=== PATIENT | female | born 2000 | race Two or more races ===

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

== ENCOUNTER 2021-01-02 14:25 | Emergency (ER) | payer MEDICAID, SELFPAY ==
[2021-01-02 14:32] VITALS: BP 120/86; BP 129/85; PULSE 103; PULSE 82; RESP 21; TEMP 36.5; O2SAT 93; O2SAT 98; BMI 15.4
--- NOTE | 2021-01-02 14:53 | ED.ABDPAIN ---
HPI - Abdominal Pain General Chief Complaint: Abdominal Pain Stated Complaint: RLQ abd pain Time Seen by Provider: 01/02/21 14:50 Source: patient Limitations: no limitations History of Present Illness HPI narrative: This is a 20 years old of female presented to the emergency department by ambulance with a chief complaint of right flank pain. He states he was seen in [facility] 2 days ago she was then used with a UTI MD elicited complaint: abdominal pain Pertinent past history: past UTI Onset (ago): day(s) (2) Pain Consistency: constant Severity: moderate Quality: cramping Migration to: no migration Associated symptoms: denies other symptoms Related Data Previous Rx's Medication Instructions Recorded vitamin B complex 1 tab PO DAILY 60 Days #60 tab 04/06/20 pantoprazole 40 mg tablet,delayed 40 mg PO BID 30 Days #60 tab 07/08/20 release ondansetron 4 mg disintegrating 4 mg PO TID PRN 5 Days #10 tab 11/13/20 tablet sulfamethoxazole 800 1 tab PO BID #6 tab 11/13/20 mg-trimethoprim 160 mg tablet (Bactrim DS) acetaminophen 500 mg capsule 500 mg PO Q6H PRN 60 Days #90 cap 11/16/20 lorazepam 1 mg tablet (Ativan) 1 mg PO DAILY PRN #14 tab 12/05/20 ondansetron 4 mg disintegrating 4 mg PO Q6-8H PRN #20 tab 12/05/20 tablet Allergies Allergy/AdvReac Type Severity Reaction Status Date / Time No Known Allergies Allergy Verified 11/15/20 18:24 [No Known Allergies*] Review of Systems Review of Systems Yes all other systems are reviewed and are negative Constitutional: Reports no additional constitutional complaints and Denies fever(s) Cardiovascular: Denies chest pain and Denies dyspnea Respiratory: Denies dyspnea Physical Exam Vital Signs: Vital Signs: Last Vital Signs Temp 97.6 F 01/02/21 16:00 Pulse 84 01/02/21 16:00 Resp 16 01/02/21 16:00 BP 137/78 01/02/21 16:00 Pulse Ox 98 01/02/21 16:00 Body Mass Index 15.4 Const: General: cooperative and anxious Orientation/consciousness: oriented to person, oriented to place, oriented to time and patient oriented x3 Limitations: no limitations HENMT: Other: Examination the head eyes ears nose throat within normal limit Mouth: Normal oral and palatal mucosa present Neck: Other: Neck is supple full range of motion Chest: Chest palpation & inspection: normal inspection of the chest Resp: Effort & Inspection: normal respiratory effort Auscultation: clear to auscultation bilaterally Cardio: Jugular venous distension: no JVD Rate: regular rate Rhythm: regular rhythm GI: Inspection: Yes normal to inspection Palpation (GI): Soft to palpation, not firm, nontender, no guarding and not rigid Skin: General skin exam: no rashes or lesions noted, elasticity normal and turgor normal Neuro: General: oriented to person, oriented to place, oriented to time and patient oriented x3 Course Course Course Narrative: UA pending case was signed out to Dr Nava MDM - Abdominal Pain Lab Data Result diagrams: 01/02/21 15:03 01/02/21 15:03 Labs: Lab Results 01/02/21 01/02/21 01/02/21 Range/Units 15:03 15:03 15:03 WBC 5.7 (4.8-10.8) X10*3/uL RBC 4.23 (4.20-5.50) X10*6/uL Hgb 13.1 (12.0-16.0) g/dl Hct 37.6 (37-47) % MCV 88.9 (80-98) fL MCH 31.0 (27.0-33.0) pg MCHC 34.8 (31.0-35.0) g/dl RDW 12.8 (11.0-16.0) % Plt Count 313 (160-400) X10*3/uL MPV 9.1 L (9.4-12.3) fL Immature Gran % (Auto) 0.2 (0.0-0.4) % Neut % (Auto) 56.2 (45-73) % Lymph % (Auto) 35.5 (20-40) % [place] % (Auto) 7.2 (2-11) % Eos % (Auto) 0.5 (0-4) % Baso % (Auto) 0.4 (0-2) % Lymph # (Auto) 2.0 (1.2-4.9) X10*3/uL [place] # (Auto) 0.4 (0.1-1.2) X10*3/uL Eos # (Auto) 0.0 (0.0-0.4) X10*3/uL Baso # (Auto) 0.0 (0.0-0.2) X10*3/uL Abs Immat Gran (auto) 0.01 (0.00-0.03) X10*3/uL Absolute Neuts (auto) 3.2 (2.0-8.3) X10*3/uL Absolute Nucleated RBC 0.000 (0.0-0.012) X10*3/uL Nucleated RBC % (auto) 0.0 (0.0-0.2) /100WBC Sodium 138 (135-145) mmol/L Potassium 3.7 (3.3-5.1) mmol/L Chloride 101 (96-108) mmol/L Carbon Dioxide 25 (22-29) mmol/L Anion Gap 16 (12-20) BUN 10 (9-16) mg/dL Creatinine 0.72 (0.5-1.4) mg/dL Estim Creat Clear Calc 80.9 Estimated GFR > 60 Random Glucose 85 (60-115) mg/dL Calcium 10.1 (8.4-10.2) mg/dL Total Bilirubin 3.5 H (0.0-1.0) mg/dL AST 15 (5-31) U/L ALT 14 (0-31) U/L Alkaline Phosphatase 36 L (39-117) U/L Total Protein 7.3 (6.5-8.0) g/dL Albumin 4.6 (3.5-5.0) g/dL Beta HCG, Quant < 2 mIU/mL Discharge Plan Discharge Clinical Impression: Acute flank pain Prescriptions: No Action ondansetron 4 mg tablet,disintegrating 4 mg PO Q6-8H PRN (Reason: nausea and vomiting) Qty: 20 RF: 0 lorazepam [Ativan] 1 mg tablet 1 mg PO DAILY PRN (Reason: anxiety) Qty: 14 RF: 0 sulfamethoxazole-trimethoprim [Bactrim DS] 800-160 mg tablet 1 tab PO BID Qty: 6 RF: 0 ondansetron 4 mg tablet,disintegrating 4 mg PO TID PRN (Reason: nausea and vomiting) 5 Days Qty: 10 RF: 0 acetaminophen 500 mg capsule 500 mg PO Q6H PRN (Reason: fever) 60 Days Qty: 90 RF: 3 vitamin B complex Tablet 1 tab PO DAILY 60 Days Qty: 60 RF: 3 pantoprazole 40 mg tablet,delayed release (DR/EC) 40 mg PO BID 30 Days Qty: 60 RF: 3 PMFSH Past Medical History Attestation statement: The following information was validated with the patient. Medical History Anxiety Gastritis Surgical History Hx of endoscopy Family History Family History Maternal Grandmother Asthma HTN (hypertension) Breast cancer Gallstones Maternal Grandmother Intestines cancer Social History Social History Household Members: Family Alcohol intake: unknown Patient Tobacco Use Status: Current someday Tobacco user Substance Use Type: Marijuana Advance Directives: No Advance Directives Information Provided: No Current occupational status: unemployed
[2021-01-02] MEDS: 0.9 % Sodium Chloride 1,000 ML 999 ML IVCONT (15:07)
[2021-01-02] MEDS: LORazepam 2 MG/ML VIAL 0.5 MG IVPUSH (15:08)
[2021-01-02] MEDS: Ketorolac Tromethamine 15 MG/ML VIAL IVPUSH (15:08)
[2021-01-02 15:12] LABS: Basophils Percent Auto 0.4 % (0-2); Eosinophils Percent Auto 0.5 % (0-4); Hematocrit 37.6 % (37-47); Hemoglobin 13.1 g/dl (12.0-16.0); Imm Gran Abs Auto 0.01 X10*3/uL (0.00-0.03); Imm Gran Pct Auto 0.2 % (0.0-0.4); Lymphocytes Percent Auto 35.5 % (20-40); MANUAL DIFF FLAG NO; Mean Corpuscular HGB Conc 34.8 g/dl (31.0-35.0); Mean Corpuscular Volume 88.9 fL (80-98); Mean Platelet Volume 9.1 fL (9.4-12.3); Monocytes Absolute Auto 0.4 X10*3/uL (0.1-1.2); Monocytes Percent Auto 7.2 % (2-11); Neutrophils Absolute Auto 3.2 X10*3/uL (2.0-8.3); Neutrophils Percent Auto 56.2 % (45-73); Platelet Count 313 X10*3/uL (160-400); Red Blood Count 4.23 X10*6/uL (4.20-5.50); Red Cell Distribution Width 12.8 % (11.0-16.0); White Blood Count 5.7 X10*3/uL (4.8-10.8)
--- NOTE | 2021-01-02 15:14 | PC.NURSE ---
Per patient: seen at [facility] had full ct scan, xr of abd, and us- then left because they didn't do shit for me . notified.
[2021-01-02 15:45] LABS: Alanine Aminotransferase 14 U/L (0-31); Albumin Level 4.6 g/dL (3.5-5.0); Alkaline Phosphatase 36 U/L (39-117); Anion Gap 16 (12-20); Aspartate Amino Transferase 15 U/L (5-31); Bilirubin Total 3.5 mg/dL (0.0-1.0); Blood Urea Nitrogen 10 mg/dL (9-16); Calcium 10.1 mg/dL (8.4-10.2); Carbon Dioxide 25 mmol/L (22-29); Chloride 101 mmol/L (96-108); Creatinine Clr Calc Pharmacy 80.9; Estimated Glomerular Filt Rate > 60; Glucose Random 85 mg/dL (60-115); Potassium 3.7 mmol/L (3.3-5.1); Sodium 138 mmol/L (135-145); Total Protein 7.3 g/dL (6.5-8.0)
[2021-01-02 15:51] LABS: HCG Quantitative < 2 mIU/mL
[2021-01-02 16:00] VITALS: BP 137/78; PULSE 84; RESP 16; TEMP 36.4; O2SAT 98
[2021-01-02 16:54] LABS: Glucose Urine UA NEG (NEG); Leukocyte Esterase Urine NEG (NEG); Nitrite Urine NEG (NEG); PH 5.5 (5.0-8.0); Specific Gravity - Urine >= 1.030 (1.005-1.025); UACC Culture Trigger NO; Urine Blood 1+ (NEG); Urine Ketones 15 MG/DL (NEG); Urine Protein 2+ MG/DL (NEG-TRACE)
[2021-01-02 16:56] LABS: Appearance Urine HAZY; Color Urine YELLOW
[2021-01-02 17:21] LABS: Mucus Urine 3+ /LPF; RBC Urine 0-2 /HPF (0); Squamous Epithelial Cell Urine 4+ /LPF
[2021-01-02 17:30] LABS: Fentanyl, urine POSITIVE (Not Detect)
[2021-01-02 18:00] VITALS: BP 100/55; PULSE 94; RESP 16; TEMP 36.3; O2SAT 98
[2021-01-02] MEDS: Dicyclomine HCl 10 MG CAPSULE 20 MG PO (19:07)
== END 2021-01-02 19:13 | disposition home or self-care (01) ==
PROVIDERS: Internal Medicine; Emergency Provider Emergency Medicine
DX: R10.31 Right lower quadrant pain (principal); Z79.899 Other long term (current) drug therapy; Z87.440 Personal history of urinary (tract) infections
CPT/HCPCS: 36415; 80053; 80307; 81001; 84702; 85025; 96365; 96375; 99284; J1885; J2060

== ENCOUNTER 2021-01-10 13:07 | Emergency (ER) | payer MEDICAID, SELFPAY ==
[2021-01-10 13:39] VITALS: PULSE 76; O2SAT 100
[2021-01-10 13:55] VITALS: BP 156/121; PULSE 113; RESP 20; TEMP 37; O2SAT 97; BMI 17.2
[2021-01-10] MEDS: Ondansetron ODT 4 MG TAB.RAPDIS TRANSLINGU (13:59)
== END 2021-01-10 16:04 | disposition left against medical advice (07) ==
LOC: HO.ED 16:00
PROVIDERS: Emergency Provider Emergency Medicine
DX: R10.9 Unspecified abdominal pain (principal)
CPT/HCPCS: 99282; 99283

== ENCOUNTER 2021-01-11 04:51 | Emergency (ER) | payer MEDICAID, SELFPAY ==
[2021-01-11 05:00] VITALS: BP 109/75; PULSE 88; RESP 16; TEMP 36.8; O2SAT 99; BMI 16.7
[2021-01-11 05:37] LABS: Basophils Percent Auto 0.2 % (0-2); Eosinophils Percent Auto 0.2 % (0-4); Hematocrit 36.2 % (37-47); Hemoglobin 12.6 g/dl (12.0-16.0); Imm Gran Abs Auto 0.02 X10*3/uL (0.00-0.03); Imm Gran Pct Auto 0.4 % (0.0-0.4); Lymphocytes Absolute Auto 1.8 X10*3/uL (1.2-4.9); Lymphocytes Percent Auto 32.5 % (20-40); Mean Corpuscular HGB Conc 34.8 g/dl (31.0-35.0); Mean Corpuscular Hemoglobin 31.3 pg (27.0-33.0); Mean Corpuscular Volume 89.8 fL (80-98); Monocytes Absolute Auto 0.5 X10*3/uL (0.1-1.2); Monocytes Percent Auto 8.5 % (2-11); Neutrophils Absolute Auto 3.3 X10*3/uL (2.0-8.3); Neutrophils Percent Auto 58.2 % (45-73); Platelet Count 341 X10*3/uL (160-400); Red Blood Count 4.03 X10*6/uL (4.20-5.50); Red Cell Distribution Width 13.4 % (11.0-16.0); White Blood Count 5.7 X10*3/uL (4.8-10.8)
[2021-01-11 05:38] LABS: MANUAL DIFF FLAG NO
[2021-01-11] MEDS: ondansetron HCL 4 MG/2 ML VIAL IVPUSH (05:40)
[2021-01-11] MEDS: 0.9 % Sodium Chloride 1,000 ML 999 ML IV (05:42)
[2021-01-11 05:58] LABS: Alanine Aminotransferase 10 U/L (0-31); Albumin Level 4.4 g/dL (3.5-5.0); Alkaline Phosphatase 33 U/L (39-117); Anion Gap 15 (12-20); Aspartate Amino Transferase 22 U/L (5-31); Bilirubin Total 1.9 mg/dL (0.0-1.0); Blood Urea Nitrogen 13 mg/dL (9-16); Calcium 10.4 mg/dL (8.4-10.2); Carbon Dioxide 27 mmol/L (22-29); Chloride 104 mmol/L (96-108); Creatinine Clr Calc Pharmacy 88.7; Estimated Glomerular Filt Rate > 60; Glucose Random 84 mg/dL (60-115); Lipase 6 U/L (8-78); Potassium 4.4 mmol/L (3.3-5.1); Sodium 142 mmol/L (135-145); Total Protein 7.1 g/dL (6.5-8.0)
--- NOTE | 2021-01-11 07:09 | ED.ABDPAIN ---
HPI - Abdominal Pain General Chief Complaint: Abdominal Pain Stated Complaint: ABD PAIN Time Seen by Provider: 01/11/21 07:09 Source: patient Mode of arrival: ambulatory Limitations: no limitations History of Present Illness HPI narrative: 20-year-old female with history of 2 years of abdominal pain. Abdominal pain accompanied with nausea and vomiting, pain feels like bloating of the abdomen on and off, patient had multiple evaluation by Gastroenterology, patient had an upper endoscopy which showed no acute pathology. Patient declined using alcohol, had a normal bowel movement with passing gas. Patient had a previous abdominal ultrasound/abdominal CT with the stoneworking sander workup which was unremarkable. Related Data Previous Rx's Medication Instructions Recorded vitamin B complex 1 tab PO DAILY 60 Days #60 tab 04/06/20 pantoprazole 40 mg tablet,delayed 40 mg PO BID 30 Days #60 tab 07/08/20 release ondansetron 4 mg disintegrating 4 mg PO TID PRN 5 Days #10 tab 11/13/20 tablet sulfamethoxazole 800 1 tab PO BID #6 tab 11/13/20 mg-trimethoprim 160 mg tablet (Bactrim DS) acetaminophen 500 mg capsule 500 mg PO Q6H PRN 60 Days #90 cap 11/16/20 lorazepam 1 mg tablet (Ativan) 1 mg PO DAILY PRN #14 tab 12/05/20 ondansetron 4 mg disintegrating 4 mg PO Q6-8H PRN #20 tab 12/05/20 tablet dicyclomine 20 mg tablet 20 mg PO TID PRN #20 tab 01/02/21 Allergies Allergy/AdvReac Type Severity Reaction Status Date / Time No Known Allergies Allergy Verified 11/15/20 18:24 [No Known Allergies*] Review of Systems Review of Systems All other systems are reviewed and are negative Constitutional: Reports as per HPI and Reports no additional constitutional complaints Eyes: Reports as per HPI and Reports no additional eye complaints Reports system reviewed and no additional complaints, except as documented Cardiovascular: Reports as per HPI and Reports no additional cardiovascular complaints Respiratory: Reports as per HPI and Reports no additional respiratory complaints Gastrointestinal: Reports as per HPI and Reports no additional gastrointestinal complaints Genitourinary: Reports no additional female genitourinary complaints Musculoskeletal: Reports no additional musculoskeletal complaints Skin/Breast: Reports system reviewed and no additional complaints, except as docu Psychiatric: Reports no additional psychiatric complaints Endocrine: Reports no additional endocrine complaints Hematologic/Lymphatic: Reports no additional hematologic/lymphatic complaints Allergic/Immunologic: Reports no additional allergic/immunologic complaints Reports system reviewed and no additional complaints, except as documented and Reports Abnormal speech present Physical Exam Vital Signs: Vital Signs: Last Vital Signs Temp 97.9 F 01/11/21 08:00 Pulse 89 01/11/21 08:00 Resp 18 01/11/21 08:00 BP 115/85 01/11/21 08:00 Pulse Ox 98 01/11/21 08:00 Body Mass Index 16.7 Vital signs have been reviewed as appeared to be correct. Blood pressure normal. Heart rate normal. Respiration rate normal. Temperature normal. Oxygen saturation normal. Appearance: Alert. Oriented X3. No acute distress. Head: Normal external exam. Normocephalic. Atraumatic. No Palmer signs noted. No raccoon eyes noted Eyes: PERRLA. EOMI. Conjunctiva and sclera normal. Eyelids normal. ENT: TM's Normal. Pharynx normal. Uvula midline. Moist mucous membranes. No trismus noted. No drooling noted. No muffled voice noted. Neck: Normal inspection. Neck supple. FROM. No adenopathy. Thyroid Normal. No meningeal signs. No neck mass noted. CVS: Normal heart rate and rhythm. Heart sound normal. No murmurs noted. Pulses normal throughout. Respiratory: No respiratory distress. Painless inspiration. Breath sounds normal. No wheezes/rales/rhonchi noted. Chest nontender. No accessory muscle usage noted or decreased air movement noted. Abdomen: Soft and nontender. Bowel sounds normal in all 4 quadrants. No distention noted. No organomegaly noted. No visible injury noted. Back: No CVA tenderness. Full range of motion noted. Skin: Skin warm and dry. Normal skin color. Normal skin turgor. No rashes/lesions/lacerations noted. Extremities: No lower extremity edema. Extremities exhibit normal range of motion. Extremities nontender. Neuro: Oriented X 3. Cranial nerve exam: II-XII are grossly intact No motor deficit. No sensory deficit. Reflexes normal. Course Course Course Narrative: Assessment and plan. 20-year-old female came in for evaluation of acute on chronic abdominal pain, patient has been seen and evaluated by stoneworking sander was upper and lower endoscopy workup, patient also had a recent visit to [facility] when she had a CT of the abdomen pelvis reportedly was unremarkable. Chronic abdominal pain to follow-up with stoneworking sander continue with antacids. MDM - Abdominal Pain Lab Data Attestation: I reviewed the patient's lab results. Result diagrams: 01/11/21 05:33 01/11/21 05:33 Labs: Lab Results 01/11/21 01/11/21 01/11/21 Range/Units 05:33 05:33 08:47 WBC 5.7 (4.8-10.8) X10*3/uL RBC 4.03 L (4.20-5.50) X10*6/uL Hgb 12.6 (12.0-16.0) g/dl Hct 36.2 L (37-47) % MCV 89.8 (80-98) fL MCH 31.3 (27.0-33.0) pg MCHC 34.8 (31.0-35.0) g/dl RDW 13.4 (11.0-16.0) % Plt Count 341 (160-400) X10*3/uL MPV 9.0 L (9.4-12.3) fL Immature Gran % (Auto) 0.4 (0.0-0.4) % Neut % (Auto) 58.2 (45-73) % Lymph % (Auto) 32.5 (20-40) % [place] % (Auto) 8.5 (2-11) % Eos % (Auto) 0.2 (0-4) % Baso % (Auto) 0.2 (0-2) % Lymph # (Auto) 1.8 (1.2-4.9) X10*3/uL [place] # (Auto) 0.5 (0.1-1.2) X10*3/uL Eos # (Auto) 0.0 (0.0-0.4) X10*3/uL Baso # (Auto) 0.0 (0.0-0.2) X10*3/uL Abs Immat Gran (auto) 0.02 (0.00-0.03) X10*3/uL Absolute Neuts (auto) 3.3 (2.0-8.3) X10*3/uL Absolute Nucleated RBC 0.000 (0.0-0.012) X10*3/uL Nucleated RBC % (auto) 0.0 (0.0-0.2) /100WBC Sodium 142 (135-145) mmol/L Potassium 4.4 (3.3-5.1) mmol/L Chloride 104 (96-108) mmol/L Carbon Dioxide 27 (22-29) mmol/L Anion Gap 15 (12-20) BUN 13 (9-16) mg/dL Creatinine 0.71 (0.5-1.4) mg/dL Estim Creat Clear Calc 88.7 Estimated GFR > 60 Random Glucose 84 (60-115) mg/dL Calcium 10.4 H (8.4-10.2) mg/dL Total Bilirubin 1.9 H (0.0-1.0) mg/dL AST 22 D (5-31) U/L ALT 10 (0-31) U/L Alkaline Phosphatase 33 L (39-117) U/L Total Protein 7.1 (6.5-8.0) g/dL Albumin 4.4 (3.5-5.0) g/dL Lipase 6 L (8-78) U/L Urine Color YELLOW Urine Appearance HAZY Urine pH 7.0 (5.0-8.0) Ur Specific [place] 1.020 (1.005-1.025) Urine Protein TRACE (NEG-TRACE) MG/DL Urine Glucose (UA) NEG (NEG) MG/DL Urine Ketones 40 (NEG) MG/DL Urine Blood TRACE (NEG) Urine Nitrite NEG (NEG) Ur Leukocyte Esterase NEG (NEG) Urine RBC 1-4 (0) /HPF Urine WBC 1-4 (0-4) /HPF Ur Squamous Epith Cells 2+ /LPF Amorphous Sediment 1+ /LPF Urine Bacteria NONE /LPF Urine Mucus 3+ /LPF Urine Test (NEGATIVE) 01/11/21 Range/Units 08:47 WBC (4.8-10.8) X10*3/uL RBC (4.20-5.50) X10*6/uL Hgb (12.0-16.0) g/dl Hct (37-47) % MCV (80-98) fL MCH (27.0-33.0) pg MCHC (31.0-35.0) g/dl RDW (11.0-16.0) % Plt Count (160-400) X10*3/uL MPV (9.4-12.3) fL Immature Gran % (Auto) (0.0-0.4) % Neut % (Auto) (45-73) % Lymph % (Auto) (20-40) % [place] % (Auto) (2-11) % Eos % (Auto) (0-4) % Baso % (Auto) (0-2) % Lymph # (Auto) (1.2-4.9) X10*3/uL [place] # (Auto) (0.1-1.2) X10*3/uL Eos # (Auto) (0.0-0.4) X10*3/uL Baso # (Auto) (0.0-0.2) X10*3/uL Abs Immat Gran (auto) (0.00-0.03) X10*3/uL Absolute Neuts (auto) (2.0-8.3) X10*3/uL Absolute Nucleated RBC (0.0-0.012) X10*3/uL Nucleated RBC % (auto) (0.0-0.2) /100WBC Sodium (135-145) mmol/L Potassium (3.3-5.1) mmol/L Chloride (96-108) mmol/L Carbon Dioxide (22-29) mmol/L Anion Gap (12-20) BUN (9-16) mg/dL Creatinine (0.5-1.4) mg/dL Estim Creat Clear Calc Estimated GFR Random Glucose (60-115) mg/dL Calcium (8.4-10.2) mg/dL Total Bilirubin (0.0-1.0) mg/dL AST (5-31) U/L ALT (0-31) U/L Alkaline Phosphatase (39-117) U/L Total Protein (6.5-8.0) g/dL Albumin (3.5-5.0) g/dL Lipase (8-78) U/L Urine Color Urine Appearance Urine pH (5.0-8.0) Ur Specific [place] (1.005-1.025) Urine Protein (NEG-TRACE) MG/DL Urine Glucose (UA) (NEG) MG/DL Urine Ketones (NEG) MG/DL Urine Blood (NEG) Urine Nitrite (NEG) Ur Leukocyte Esterase (NEG) Urine RBC (0) /HPF Urine WBC (0-4) /HPF Ur Squamous Epith Cells /LPF Amorphous Sediment /LPF Urine Bacteria /LPF Urine Mucus /LPF Urine Test NEGATIVE (NEGATIVE) Discharge Plan Discharge Clinical Impression: Abdominal pain Patient Disposition: Home, Self-Care Instructions: Gastritis (ED) Prescriptions: No Action ondansetron 4 mg tablet,disintegrating 4 mg PO Q6-8H PRN (Reason: nausea and vomiting) Qty: 20 RF: 0 lorazepam [Ativan] 1 mg tablet 1 mg PO DAILY PRN (Reason: anxiety) Qty: 14 RF: 0 sulfamethoxazole-trimethoprim [Bactrim DS] 800-160 mg tablet 1 tab PO BID Qty: 6 RF: 0 ondansetron 4 mg tablet,disintegrating 4 mg PO TID PRN (Reason: nausea and vomiting) 5 Days Qty: 10 RF: 0 dicyclomine 20 mg tablet 20 mg PO TID PRN (Reason: pain (scale score 4-6)) Qty: 20 RF: 0 acetaminophen 500 mg capsule 500 mg PO Q6H PRN (Reason: fever) 60 Days Qty: 90 RF: 3 vitamin B complex Tablet 1 tab PO DAILY 60 Days Qty: 60 RF: 3 pantoprazole 40 mg tablet,delayed release (DR/EC) 40 mg PO BID 30 Days Qty: 60 RF: 3 Referrals: Michael Proctor [Physician] - 2 days PMFSH Past Medical History Medical History Anxiety Gastritis Surgical History Hx of endoscopy Family History Family History Maternal Grandmother Asthma HTN (hypertension) Breast cancer Gallstones Maternal Grandmother Intestines cancer Social History Social History Household Members: Family Alcohol intake: unknown Patient Tobacco Use Status: Current someday Tobacco user Substance Use Type: Marijuana Advance Directives: No Advance Directives Information Provided: No Patient : No Current occupational status: unemployed
[2021-01-11 08:00] VITALS: BP 115/85; PULSE 89; RESP 18; TEMP 36.6; O2SAT 98
[2021-01-11] MEDS: Ketorolac Tromethamine 15 MG/ML VIAL IVPUSH (08:43)
--- NOTE | 2021-01-11 08:50 | PC.NURSE ---
no vomiting. upper abd pain. skin pwd. states she had CT/US last week at [facility].
[2021-01-11 09:01] LABS: Appearance Urine HAZY; Color Urine YELLOW; Glucose Urine UA NEG (NEG); Leukocyte Esterase Urine NEG (NEG); Nitrite Urine NEG (NEG); UACC Culture Trigger NO; Urine Blood TRACE (NEG); Urine Ketones 40 MG/DL (NEG); Urine Protein TRACE MG/DL (NEG-TRACE)
[2021-01-11 09:06] LABS: Amorphous Sediment Urine 1+ /LPF; Mucus Urine 3+ /LPF; Squamous Epithelial Cell Urine 2+ /LPF; UPreg QC Valid YES
[2021-01-11 09:07] LABS: Urine Pregnancy NEGATIVE (NEGATIVE)
== END 2021-01-11 10:17 | disposition home or self-care (01) ==
PROVIDERS: Emergency Provider Emergency Medicine
DX: R10.9 Unspecified abdominal pain (principal); F17.210 Nicotine dependence, cigarettes, uncomplicated; F12.90 Cannabis use, unspecified, uncomplicated
CPT/HCPCS: 36415; 80053; 81001; 81003; 81025; 83690; 85025; 96361; 96374; 96375; 99284; J1885; J2405

== ENCOUNTER 2021-01-17 22:55 | Emergency (ER) | payer MEDICAID, SELFPAY ==
[2021-01-17 23:03] VITALS: BP 138/110; PULSE 120; O2SAT 99
== END 2021-01-17 23:13 | disposition left against medical advice (07) ==
PROVIDERS: Emergency Provider Emergency Medicine
DX: R10.9 Unspecified abdominal pain (principal)

== ENCOUNTER 2021-01-18 09:37 | Day surgery (SDC) | payer MEDICAID, SELFPAY ==
--- NOTE | 2021-01-17 10:31 | HO.ANESPROP2 ---
Documented by User: Salma Pitts NP 01/17/21 10:32 HPI - Anesthesia Eval Consult details Narrative: 20yo F for Upper Endoscopy PMFSH Active Problems Active Problems: All Active Problems (Updated 01/12/21 @ 00:02 by Santos Maldonado) ADHD (Acute) Gastroparesis (Acute) Nausea and vomiting (Acute) Upper abdominal pain (Acute) Anxiety (Acute) Past Medical History Medical History ADHD Anxiety Gastritis Gastroparesis Family History Family History Maternal Grandmother Asthma HTN (hypertension) Breast cancer Gallstones Maternal Grandmother Intestines cancer Surgical History Surgical History Hx of endoscopy Social History Social History Household Members: Family Alcohol intake: unknown Patient Tobacco Use Status: Current someday Tobacco user Tobacco use type: Cigarette Second Hand Smoke Exposure: No Use of substances other than those prescribed or required for medical reasons: No Substance Use Type: Marijuana Are you DNR?: No Advance Directives: No Advance Directives Information Provided: Yes Advance Directives on File: No Current occupational status: unemployed Meds Allergies Allergy/AdvReac Type Severity Reaction Status Date / Time No Known Allergies Allergy Verified 11/15/20 18:24 [No Known Allergies*] Exam Exam Date and Time: January 17, 2021 1031 Pertinent Lab Results Pertinent Lab Results: Laboratory Tests 01/11/21 01/11/21 05:33 05:33 WBC 5.7 Hgb 12.6 Hct 36.2 L Plt Count 341 Sodium 142 Potassium 4.4 Chloride 104 Carbon Dioxide 27 BUN 13 Creatinine 0.71 Assessment and Plan Assessment Anesthesia Assessment: Chart Reviewed Documented by User: Gabby Callahan MD 01/18/21 10:02 PMFSH Past Medical History Medical History ADHD Anxiety Gastritis Gastroparesis Functional capacity: independent ambulation Patient : No Family History Family History Maternal Grandmother Asthma HTN (hypertension) Breast cancer Gallstones Maternal Grandmother Intestines cancer Family history of problems with anesthesia: No Surgical History Surgical History Hx of endoscopy History of Problems with Anesthesia: No Social History Social History Household Members: Family Alcohol intake: unknown Patient Tobacco Use Status: Current someday Tobacco user Tobacco use type: Cigarette Second Hand Smoke Exposure: No Use of substances other than those prescribed or required for medical reasons: No Substance Use Type: Marijuana Are you DNR?: No Advance Directives: No Advance Directives Information Provided: Yes Advance Directives on File: No Current occupational status: unemployed Meds Allergies Allergy/AdvReac Type Severity Reaction Status Date / Time No Known Allergies Allergy Verified 11/15/20 18:24 [No Known Allergies*] Exam Airway Mallampati Class: II TM Dist: >3cm Neck ROM: Full Heart: RRR Lungs: CCTA Assessment and Plan Final Anesthetic Review Family History of Problems with Anesthesia: No History of Problems with Anesthesia: No
[2021-01-18 09:52] VITALS: BP 124/105; PULSE 95; RESP 16; TEMP 36.5; O2SAT 94; BMI 15.4
[2021-01-18] MEDS: Lactated Ringers 1,000 ML 100 ML IVCONT (10:05)
--- NOTE | 2021-01-18 10:10 | PC.NURSE ---
urine preg ordered on patient. pt states unable to urinate at this time. pt complaining of 10/10 pain to the abdomen. Dr. Panda at bedside. pt states i am not . per Dr. Panda can continue with procedure without urine preg test.
--- NOTE | 2021-01-18 10:47 | MHC.SHP ---
Pre-Procedural Eval Section A Date of Service: 01/18/21 The patient is an INPATIENT: No Changes since office visit: No Cold of Flu in the past 2 weeks, No New Medical Problems, No Changes in Medication and No Patient answered all questions The History & Physical has been completed within 30 days and I have reviewed it.: Yes Section B Chief Complaint: epi pain Allergies: Allergies Allergy/AdvReac Type Severity Reaction Status Date / Time No Known Allergies Allergy Verified 11/15/20 18:24 [No Known Allergies*] Plan I have reviewed the history and physical and performed a pertinent physical examination on my patient. No changes have occurred unless specified.
--- NOTE | 2021-01-18 11:07 | PM.OP ---
Brief Operative Note Date of Service: 01/18/21 Pre-op diagnosis: epigastric pain Post-op diagnosis: same (erosove gastritis, and esophagitis) Procedure: EGD Surgeon: Michael Proctor Anesthesia: MAC Was an Seamless Hosiery Knitter used for this Procedure?: No Estimated blood loss (mL): 5 Pathology: other (bxs antrum, duodenum, egj) Condition: stable Disposition: PACU
[2021-01-18 11:10] VITALS: BP 121/82; PULSE 95; RESP 20; TEMP 36.6; O2SAT 99
[2021-01-18 11:27] VITALS: BP 136/91; PULSE 102; RESP 20; TEMP 36.6; O2SAT 99
--- NOTE | 2021-01-18 11:28 | OP_ITS ---
SURGEON: Michael Proctor MD INDICATIONS: Epigastric pain. PREOPERATIVE DIAGNOSIS: POSTOPERATIVE DIAGNOSIS: PROCEDURE PERFORMED: Upper endoscopy with biopsy. ESTIMATED BLOOD LOSS: COMPLICATIONS: ANESTHESIA: ASSISTANTS: SPECIMENS: MEDICATIONS: Monitored anesthesia care. DESCRIPTION OF PROCEDURE: The history and physical performed. The risks and benefits of procedure were explained to the patient. Informed consent was obtained. The patient was placed in the left lateral decubitus position. The Olympus video gastroscope was introduced into the esophagus, stomach, and duodenum. Examination was performed and the scope was removed. She tolerated the procedure well and was taken to recovery area in stable condition. FINDINGS: Esophagus: There was a distal esophagitis with erosions and ulcerations over the last 1 cm of the esophagus. Biopsies were obtained from the EG junction. Stomach: The stomach showed multiple erosions involving the body and fundus of the stomach as well as the antrum. Biopsies were obtained to rule out H pylori. There was no active bleeding. Duodenum: The bulb and second portion were normal. Biopsies were obtained from the second portion. IMPRESSION: 1. Erosive gastritis. 2. Erosive esophagitis. RECOMMENDATIONS: 1. Continue pantoprazole 40 mg daily. 2. Follow up the biopsy results. MD BLAKE Hagen/ASHLEY / [id number]
--- NOTE | 2021-01-18 17:11 | HO.POSTANES ---
Post Anesthesia Evaluation Post Anesthesia Evaluation Vital Signs: Vital Signs Temp Pulse Resp BP Pulse Ox 01/18/21 11:27 97.8 F 102 H 20 136/91 H 99 01/18/21 11:10 97.8 F 95 20 121/82 99 01/18/21 09:52 97.7 F 95 16 124/105 H 94 Anesthesia: Monitored Mental Status: Awake Pain Control: Satisfactory Nausea/Vomiting: None Hydration: Adequate Anesthesia-Related Issues: No Anes. Related Issues
== END 2021-01-18 11:59 | disposition home or self-care (01) ==
PROVIDERS: PCP Nurse Practitioner; Visit Provider Internal Medicine Gastroenterology
PROC: 0DJ08ZZ Inspection of Upper Intestinal Tract, Via Natural or Artificial Opening Endoscopic (ICD-10-PCS; CPT 43235; principal; 2021-01-18 10:50)
DX: K20.80 Other esophagitis without bleeding (principal); K29.60 Other gastritis without bleeding; K31.84 Gastroparesis; F90.9 Attention-deficit hyperactivity disorder, unspecified type; F32.9 Major depressive disorder, single episode, unspecified
CPT/HCPCS: 43239; 88305; 88342

== ENCOUNTER 2021-06-13 18:40 | Emergency (ER) | payer MEDICAID, SELFPAY ==
[2021-06-13 18:53] VITALS: BP 112/69; BP 128/73; PULSE 121; PULSE 125; RESP 20; TEMP 36.9; O2SAT 97; BMI 18.8
--- NOTE | 2021-06-13 18:56 | ED.ABDPAIN ---
HPI - Abdominal Pain General Chief Complaint: Abdominal Pain Stated Complaint: ABD PAIN,ANXIETY Source: patient and EMS Mode of arrival: EMS Limitations: no limitations History of Present Illness HPI narrative: 21-year-old female presents via EMS with abdominal pain, nausea, vomiting, and anxiety. Is approximately 7 weeks . MD elicited complaint: abdominal pain Onset (ago): year(s) Pain Consistency: intermittent Location: epigastric Severity: similar to previous episodes Quality: aching Radiation: none Migration to: no migration Exacerbating factors: vomiting Relieving factors: nothing Context: history of similar episodes Associated symptoms: nausea, vomiting and other (Anxiety) Related Data Date of Last Menstrual Period: 04/26/21 Patient : Yes Previous Rx's Medication Instructions Recorded vitamin B complex 1 tab PO DAILY 60 Days #60 tab 04/06/20 pantoprazole 40 mg tablet,delayed 40 mg PO BID 30 Days #60 tab 07/08/20 release ondansetron 4 mg disintegrating 4 mg PO TID PRN 5 Days #10 tab 11/13/20 tablet sulfamethoxazole 800 1 tab PO BID #6 tab 11/13/20 mg-trimethoprim 160 mg tablet (Bactrim DS) acetaminophen 500 mg capsule 500 mg PO Q6H PRN 60 Days #90 cap 11/16/20 lorazepam 1 mg tablet (Ativan) 1 mg PO DAILY PRN #14 tab 12/05/20 ondansetron 4 mg disintegrating 4 mg PO Q6-8H PRN #20 tab 12/05/20 tablet dicyclomine 20 mg tablet 20 mg PO TID PRN #20 tab 01/02/21 Allergies Allergy/AdvReac Type Severity Reaction Status Date / Time No Known Allergies Allergy Verified 11/15/20 18:24 [No Known Allergies*] Review of Systems Review of Systems Constitutional: No Weight loss, No Fever, No Chills, No Night Sweats, No Fatigue, No Malaise ENT/Mouth: No Hearing loss, No Ear Pain, No Nasal Congestion, No Sinus Pain, No Hoarseness, No sore throat, No Rhinorrhea, No Swallowing Difficulty Eyes: No Eye Pain, No Swelling, No Redness, No Foreign Body, No Discharge, No Vision Changes Cardiovascular: No Chest Pain, No SOB, No Dyspnea on Exertion, No Orthopnea, No Edema, No Palpitations Respiratory: No Cough, No Sputum, No Wheezing, No Smoke Exposure, No Dyspnea Gastrointestinal: Positive Nausea, Positive Vomiting, no Diarrhea, positive abdominal Pain, No Hematochezia, No Melena Genitourinary: no irregular bleeding, No Dysuria, No Urinary Frequency, No Hematuria, No Urinary Incontinence, No Urgency, No Flank Pain, No Urinary Flow Changes, No Hesitancy Musculoskeletal: No joint pain, No Myalgias, No Joint Swelling Skin: No Skin Lesions, No rash Neuro: No Weakness, No Numbness, No Paresthesias, No Loss of Consciousness, No Dizziness, No Headache Psych: Positive Anxiety, no Panic, No Depression, No SI/HI/AH/VH, No Social Issues Heme/Lymph: No Bruising, No Bleeding,No Lymphadenopathy Endocrine: No Polyuria, No Polydipsia, No Temperature Intolerance Yes all other systems are reviewed and are negative Physical Exam Vital Signs: Vital Signs: Last Vital Signs Temp 98.5 F 06/13/21 18:53 Pulse 125 H 06/13/21 18:53 Resp 20 06/13/21 18:53 BP 128/73 06/13/21 18:53 Pulse Ox 97 06/13/21 18:53 BMI result Body Mass Index 18.8 Appearance: Alert. Oriented X3. Anxiety and emotional distress. Eyes: Pupils equal, round and reactive to light. Sclera nonicteric. EOMI. ENT: Pharynx normal. Moist mucous membranes. Neck: Normal inspection. Neck supple. CVS: Normal heart rate and rhythm. Pulses normal. Respiratory: No respiratory distress. Breath sounds normal. Abdomen: Soft and nontender to palpation. Skin: Skin warm and dry. Normal skin color. Normal skin turgor. Extremities: No lower extremity edema. Moves all extremities against resistance. Neuro: No motor deficit. No sensory deficit. Cranial nerves 2-12 intact. NIH Stroke Scale Motor Arm (Right): Some effort against gravity Course Course Course Narrative: 21-year-old female presents via EMS for abdominal pain, nausea and vomiting. States to have recurrent episodes like this and is approximately 7 weeks . Patient is not complaining of any lower abdominal pain, denies vaginal bleeding or cramping, trauma, abuse, abnormal vaginal discharge, or any other concerning symptoms. States that she stop smoking marijuana approximately a week ago. Patient has had numerous visits for similar circumstances in the past with negative workup, has chronically elevated liver enzymes. Will order labs, hCG quant, and resuscitate with 1 L of fluids with Zofran and Benadryl. Lab values unremarkable, patient states to feel better after fluids and medications. Requesting p.o. food challenge Patient is able to tolerate p.o. fluids. Will discharge home, patient does have an appointment with OBGYN tomorrow and she was strongly encouraged to keep that appointment and discuss her anxiety with OBGYN. Patient verbalized understanding of and agrees to plan of care discharge home. Patient verbalized understanding of signs and symptoms indicating need for emergent intervention. MDM - Abdominal Pain MDM Narrative Medical decision making narrative: Hyperemesis gravidarum, anxiety Differential Diagnosis Differential diagnosis: Likely abdominal pain, gastroenteritis and gastritis Medical Records Attestation: I reviewed the patient's medical records. Lab Data Attestation: I reviewed the patient's lab results. Result diagrams: 06/13/21 19:44 06/13/21 19:44 Labs: Lab Results 06/13/21 06/13/21 06/13/21 Range/Units 19:44 19:44 20:20 WBC 11.3 H (4.8-10.8) X10*3/uL RBC 3.62 L (4.20-5.50) X10*6/uL Hgb 11.6 L (12.0-16.0) g/dl Hct 33.2 L (37.0-47.0) % MCV 91.7 (80.0-98.0) fL MCH 32.0 (27.0-33.0) pg MCHC 34.9 (31.0-35.0) g/dl RDW 12.9 (11.0-16.0) % Plt Count 365 (160-400) X10*3/uL MPV 9.0 L (9.4-12.3) fL Immature Gran % (Auto) 0.4 (0.0-0.4) % Neut % (Auto) 75.6 H (45-73) % Lymph % (Auto) 18.0 L (20-40) % [place] % (Auto) 5.4 (2-11) % Eos % (Auto) 0.3 (0-4) % Baso % (Auto) 0.3 (0-2) % Lymph # (Auto) 2.0 (1.2-4.9) X10*3/uL [place] # (Auto) 0.6 (0.1-1.2) X10*3/uL Eos # (Auto) 0.0 (0.0-0.4) X10*3/uL Baso # (Auto) 0.0 (0.0-0.2) X10*3/uL Abs Immat Gran (auto) 0.05 H (0.00-0.03) X10*3/uL Absolute Neuts (auto) 8.5 H (2.0-8.3) x10*3/uL Absolute Nucleated RBC 0.000 (0.0-0.012) X10*3/uL Nucleated RBC % (auto) 0.0 (0.0-0.2) /100WBC Sodium 138 (135-145) mmol/L Potassium 4.0 (3.3-5.1) mmol/L Chloride 105 (96-108) mmol/L Carbon Dioxide 25 (22-29) mmol/L Anion Gap 12 (12-20) BUN 13 (9-16) mg/dL Creatinine 0.62 (0.5-1.4) mg/dL Estim Creat Clear Calc 114.0 Estimated GFR > 60 Random Glucose 72 (60-115) mg/dL Calcium 10.0 (8.4-10.2) mg/dL Magnesium 1.9 (1.6-2.6) mg/dL Total Bilirubin 2.1 H (0.0-1.0) mg/dL Direct Bilirubin 0.7 H (0.0-0.5) mg/dL AST 16 (5-31) U/L ALT 12 (0-31) U/L Alkaline Phosphatase 43 D (39-117) U/L Total Protein 7.2 (6.5-8.0) g/dL Albumin 4.5 (3.5-5.0) g/dL Lipase 10 (8-78) U/L Beta HCG, Quant 6168 mIU/mL Urine Color YELLOW Urine Appearance CLEAR Urine pH 6.5 (5.0-8.0) Ur Specific [place] 1.025 (1.005-1.025) Urine Protein NEG (NEG-TRACE) MG/DL Urine Glucose (UA) NEG (NEG) MG/DL Urine Ketones >=80 (NEG) MG/DL Urine Blood TRACE (NEG) Urine Nitrite NEG (NEG) Ur Leukocyte Esterase NEG (NEG) Urine RBC 0-2 (0) /HPF Urine WBC 1-4 (0-4) /HPF Ur Squamous Epith Cells 1+ /LPF Amorphous Sediment 1+ /LPF Urine Bacteria TRACE /LPF Discharge Plan Discharge Clinical Impression: Hyperemesis gravidarum, Anxiety Patient Disposition: Home, Self-Care Instructions: Hyperemesis Gravidarum (ED), Anxiety (ED) Additional Instructions: You were evaluated for nausea, vomiting, abdominal pain and anxiety. You are approximately 7 weeks . Please continue follow-up with OBGYN and keep your appointment tomorrow. Ask your OBGYN about medications to help you with your anxiety. Thank you for choosing this emergency department for evaluation. Please follow-up with primary care physician as needed. Return to the emergency department for any new, concerning, or worsening symptoms. Prescriptions: No Action ondansetron 4 mg tablet,disintegrating 4 mg PO Q6-8H PRN (Reason: nausea and vomiting) Qty: 20 0RF lorazepam [Ativan] 1 mg tablet 1 mg PO DAILY PRN (Reason: anxiety) Qty: 14 0RF sulfamethoxazole-trimethoprim [Bactrim DS] 800-160 mg tablet 1 tab PO BID Qty: 6 0RF ondansetron 4 mg tablet,disintegrating 4 mg PO TID PRN (Reason: nausea and vomiting) 5 Days Qty: 10 0RF dicyclomine 20 mg tablet 20 mg PO TID PRN (Reason: pain (scale score 4-6)) Qty: 20 0RF acetaminophen 500 mg capsule 500 mg PO Q6H PRN (Reason: fever) 60 Days Qty: 90 3RF vitamin B complex Tablet 1 tab PO DAILY 60 Days Qty: 60 3RF pantoprazole 40 mg tablet,delayed release (DR/EC) 40 mg PO BID 30 Days Qty: 60 3RF Interventions: ED Discharge Assessment Last Done: 06/13/21 21:44 Discharge Date/Time: 06/13/21 21:45 [facility] Past Medical History Attestation statement: The following information was validated with the patient. Source: old records reviewed Medical History ADHD Anxiety Gastritis Gastroparesis Surgical History Hx of endoscopy Date of Last Menstrual Period: 04/26/21 Family History Family History Maternal Grandmother Asthma HTN (hypertension) Breast cancer Gallstones Maternal Grandmother Intestines cancer Social History Social History Household Members: Family Alcohol intake: unknown Patient Tobacco Use Status: Current someday Tobacco user Tobacco use type: Cigarette Second Hand Smoke Exposure: No Substance Use Type: Marijuana Advance Directives: No Advance Directives Information Provided: Yes Current occupational status: unemployed
[2021-06-13 19:49] LABS: MANUAL DIFF FLAG NO
[2021-06-13 19:50] LABS: Basophils Percent Auto 0.3 % (0-2); Eosinophils Percent Auto 0.3 % (0-4); Hematocrit 33.2 % (37.0-47.0); Hemoglobin 11.6 g/dl (12.0-16.0); Imm Gran Abs Auto 0.05 X10*3/uL (0.00-0.03); Imm Gran Pct Auto 0.4 % (0.0-0.4); Mean Corpuscular HGB Conc 34.9 g/dl (31.0-35.0); Mean Corpuscular Volume 91.7 fL (80.0-98.0); Monocytes Absolute Auto 0.6 X10*3/uL (0.1-1.2); Monocytes Percent Auto 5.4 % (2-11); Neutrophils Absolute Auto 8.5 x10*3/uL (2.0-8.3); Neutrophils Percent Auto 75.6 % (45-73); Platelet Count 365 X10*3/uL (160-400); Red Blood Count 3.62 X10*6/uL (4.20-5.50); Red Cell Distribution Width 12.9 % (11.0-16.0); White Blood Count 11.3 X10*3/uL (4.8-10.8)
[2021-06-13] MEDS: ondansetron HCL 4 MG/2 ML VIAL IVPUSH (20:02)
[2021-06-13] MEDS: diphenhydrAMINE HCL 50 MG/ML VIAL 25 MG IVPUSH (20:03)
[2021-06-13] MEDS: 0.9 % Sodium Chloride 1,000 ML 999 ML IVCONT (20:03)
[2021-06-13 20:22] LABS: Alanine Aminotransferase 12 U/L (0-31); Albumin Level 4.5 g/dL (3.5-5.0); Alkaline Phosphatase 43 U/L (39-117); Anion Gap 12 (12-20); Aspartate Amino Transferase 16 U/L (5-31); Bilirubin Direct 0.7 mg/dL (0.0-0.5); Bilirubin Total 2.1 mg/dL (0.0-1.0); Blood Urea Nitrogen 13 mg/dL (9-16); Carbon Dioxide 25 mmol/L (22-29); Chloride 105 mmol/L (96-108); Estimated Glomerular Filt Rate > 60; Glucose Random 72 mg/dL (60-115); Lipase 10 U/L (8-78); Magnesium 1.9 mg/dL (1.6-2.6); Sodium 138 mmol/L (135-145); Total Protein 7.2 g/dL (6.5-8.0)
[2021-06-13 20:27] LABS: Appearance Urine CLEAR; Color Urine YELLOW; Glucose Urine UA NEG (NEG); Leukocyte Esterase Urine NEG (NEG); Nitrite Urine NEG (NEG); PH 6.5 (5.0-8.0); Specific Gravity - Urine 1.025 (1.005-1.025); UACC Culture Trigger NO; Urine Blood TRACE (NEG); Urine Ketones >=80 MG/DL (NEG); Urine Protein NEG (NEG-TRACE)
[2021-06-13 20:28] LABS: HCG Quantitative 6168 mIU/mL
[2021-06-13 21:08] LABS: Amorphous Sediment Urine 1+ /LPF; Bacteria Urine TRACE /LPF; RBC Urine 0-2 /HPF (0); Squamous Epithelial Cell Urine 1+ /LPF
--- NOTE | 2021-06-13 21:29 | PC.NURSE ---
I assumed care of this pt upon her arrival from EMS stretcher. She presents for evaluation of R sided abdominal pain, intermittent and severe, on and off for the past twoyears. The pt states she has severe anxiety and suspects that maybe the abdominal pain is due to her anxiety. She denies vomiting/diarrhea/CP/SOB.
== END 2021-06-13 21:45 | disposition home or self-care (01) ==
PROVIDERS: Nurse Practitioner Family; Emergency Provider Internal Medicine
DX: O21.0 Mild hyperemesis gravidarum (principal); O26.891 Other specified pregnancy related conditions, first trimester; F41.9 Anxiety disorder, unspecified; Z3A.01 Less than 8 weeks gestation of pregnancy
CPT/HCPCS: 36415; 80048; 80076; 81001; 83690; 83735; 84702; 85025; 96361; 96374; 96375; 99284; J1200; J2405

== ENCOUNTER 2021-07-05 17:31 | Emergency (ER) | payer MEDICAID, SELFPAY ==
--- NOTE | ~2021-07-05 | US_ITS ---
EXAMINATION: US ABDOMEN LIMITED CLINICAL INFORMATION: Rule out gallbladder disease . COMPARISON: None TECHNIQUE: Real-time imaging of the gallbladder FINDINGS: LIVER: The included portions of the liver are unremarkable. GALLBLADDER: The gallbladder is physiologically distended without evidence of stones, sludge, polyps, wall thickening or pericholecystic fluid. The patient was tender over the gallbladder fossa when compressed with the ultrasound probe. However, the production administrative assistant claimed that the patient was tender all over . COMMON BILE DUCT: Normal in caliber measuring 0.3 cm in diameter. FREE FLUID: None detected but this was not specifically look for. US/US abdomen limited IMPRESSION: Morphologically normal-appearing gallbladder without stones.
[2021-07-05 17:50] VITALS: BP 127/70; PULSE 110; O2SAT 98
[2021-07-05 17:52] VITALS: BP 110/76; PULSE 122; RESP 16; O2SAT 96; BMI 18.5
--- NOTE | 2021-07-05 18:09 | ED_ITS ---
HPI - Abdominal Pain General Chief Complaint: Abdominal Pain Stated Complaint: abd pain Time Seen by Provider: 07/05/21 18:06 Source: patient and family (Mother) Mode of arrival: ambulatory Limitations: no limitations History of Present Illness HPI narrative: 21 years old female came in for evaluation of epigastric pain worsening over past 3 days. 21-year-old female with chronic abdominal pain going on for 20 years, been worsening over the past 3 days, pain is mostly epigastric area, described as severe dull aching pain which is constant for 3 days. Pain is worsening with food, no relieving factor, pain is associated with nausea and vomiting, patient has been evaluated for this epigastric pain had EGD x2 which showed erosive gastritis and esophagitis, patient also had a multiple ED visits for similar s ymptoms had CT of the abdomen pelvis and ultrasound of the abdomen which was unrevealing. Patient is 8 weeks , declined any vaginal bleeding or discharge, no contraction. Patient is scheduled to have her 1st care next week. Related Data Previous Rx's Medication Instructions Recorded vitamin B complex 1 tab PO DAILY 60 Days #60 tab 04/06/20 pantoprazole 40 mg tablet,delayed 40 mg PO BID 30 Days #60 tab 07/08/20 release ondansetron 4 mg disintegrating 4 mg PO TID PRN 5 Days #10 tab 11/13/20 tablet sulfamethoxazole 800 1 tab PO BID #6 tab 11/13/20 mg-trimethoprim 160 mg tablet (Bactrim DS) acetaminophen 500 mg capsule 500 mg PO Q6H PRN 60 Days #90 cap 11/16/20 lorazepam 1 mg tablet (Ativan) 1 mg PO DAILY PRN #14 tab 12/05/20 ondansetron 4 mg disintegrating 4 mg PO Q6-8H PRN #20 tab 12/05/20 tablet dicyclomine 20 mg tablet 20 mg PO TID PRN #20 tab 01/02/21 nitrofurantoin 100 mg PO Q12H 7 Days #14 cap 07/05/21 monohydrate/macrocrystals 100 mg capsule (Macrobid) Allergies Allergy/AdvReac Type Severity Reaction Status Date / Time No Known Allergies Allergy Verified 11/15/20 18:24 [No Known Allergies*] Review of Systems Review of Systems All other systems are reviewed and are negative Constitutional: Reports as per HPI and Reports no additional constitutional complaints Eyes: Reports as per HPI and Reports no additional eye complaints Reports system reviewed and no additional complaints, except as documented Cardiovascular: Reports as per HPI and Reports no additional cardiovascular complaints Respiratory: Reports as per HPI and Reports no additional respiratory complaints Gastrointestinal: Reports as per HPI and Reports no additional gastrointestinal complaints Genitourinary: Reports no additional female genitourinary complaints Musculoskeletal: Reports no additional musculoskeletal complaints Skin/Breast: Reports system reviewed and no additional complaints, except as docu Psychiatric: Reports no additional psychiatric complaints Endocrine: Reports no additional endocrine complaints Hematologic/Lymphatic: Reports no additional hematologic/lymphatic complaints Allergic/Immunologic: Reports no additional allergic/immunologic complaints Reports system reviewed and no additional complaints, except as documented and Reports Abnormal speech present [facility] Past Medical History Medical History ADHD Anxiety Gastritis Gastroparesis Surgical History Hx of endoscopy Family History Family History Maternal Grandmother Asthma HTN (hypertension) Breast cancer Gallstones Maternal Grandmother Intestines cancer Social History Social History Household Members: Family Alcohol intake: unknown Patient Tobacco Use Status: Current someday Tobacco user Tobacco use type: Cigarette Second Hand Smoke Exposure: No Substance Use Type: Marijuana Advance Directives: No Advance Directives Information Provided: No Patient : Yes Current occupational status: unemployed Physical Exam ED Vital Signs: Vital Signs - 24 hr 07/05/21 17:52 07/05/21 18:31 Temperature 98.4 F Pulse Rate 122 H 121 H Respiratory Rate 16 24 H Blood Pressure 110/76 109/65 Pulse Oximetry 96 98 BMI result Body Mass Index 18.5 Vital signs have been reviewed as appeared to be correct. Blood pressure normal. Heart rate elevated. Respiration rate normal. Temperature normal. Oxygen saturation normal. Appearance: Alert. Oriented X3. No acute distress. Head: Normal external exam. Normocephalic. Atraumatic. No Palmer signs noted. No raccoon eyes noted Eyes: PERRLA. EOMI. Conjunctiva and sclera normal. Eyelids normal. ENT: TM's Normal. Pharynx normal. Uvula midline. Moist mucous membranes. No trismus noted. No drooling noted. No muffled voice noted. Neck: Normal inspection. Neck supple. FROM. No adenopathy. Thyroid Normal. No meningeal signs. No neck mass noted. CVS: Normal heart rate and rhythm. Heart sound normal. No murmurs noted. Pulses normal throughout. Respiratory: No respiratory distress. Painless inspiration. Breath sounds normal. No wheezes/rales/rhonchi noted. Chest nontender. No accessory muscle usage noted or decreased air movement noted. Abdomen: Soft, mild epigastric tenderness, no rebound tenderness, no guarding. Bowel sounds normal in all 4 quadrants. No distention noted. No organomegaly noted. No visible injury noted. Back: No CVA tenderness. Full range of motion noted. Skin: Skin warm and dry. Normal skin color. Normal skin turgor. No rashes/lesions/lacerations noted. Extremities: No lower extremity edema. Extremities exhibit normal range of motion. Extremities nontender. Neuro: Oriented X 3. Cranial nerve exam: II-XII are grossly intact No motor deficit. No sensory deficit. Reflexes normal. Course Course Course Narrative: Assessment and plan. 21-year-old female 8 weeks with history of erosive gastritis and esophagitis on previous EGD, presented with epigastric pain, patient was instructed to use small frequent meals, avoid greasy and fatty food, drink plenty of fluid, elevate the head of the bed, last meal should be 3 hours before sleeping time. 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 UTI will consider Macrobid. MDM - Abdominal Pain Lab Data Attestation: I reviewed the patient's lab results. Result diagrams: 07/05/21 18:39 07/05/21 18:39 Labs: Lab Results 07/05/21 07/05/21 07/05/21 Range/Units 18:39 18:39 20:36 WBC 14.9 H (4.8-10.8) X10*3/uL RBC 3.50 L (4.20-5.50) X10*6/uL Hgb 11.4 L (12.0-16.0) g/dl Hct 32.8 L (37.0-47.0) % MCV 93.7 (80.0-98.0) fL MCH 32.6 (27.0-33.0) pg MCHC 34.8 (31.0-35.0) g/dl RDW 13.4 (11.0-16.0) % Plt Count 346 (160-400) X10*3/uL MPV 8.8 L (9.4-12.3) fL Immature Gran % (Auto) 0.5 H (0.0-0.4) % Neut % (Auto) 77.8 H (45-73) % Lymph % (Auto) 15.6 L (20-40) % [place] % (Auto) 5.4 (2-11) % Eos % (Auto) 0.5 (0-4) % Baso % (Auto) 0.2 (0-2) % Lymph # (Auto) 2.3 (1.2-4.9) X10*3/uL [place] # (Auto) 0.8 (0.1-1.2) X10*3/uL Eos # (Auto) 0.1 (0.0-0.4) X10*3/uL Baso # (Auto) 0.0 (0.0-0.2) X10*3/uL Abs Immat Gran (auto) 0.07 H (0.00-0.03) X10*3/uL Absolute Neuts (auto) 11.6 H (2.0-8.3) x10*3/uL Absolute Nucleated RBC 0.000 (0.0-0.012) X10*3/uL Nucleated RBC % (auto) 0.0 (0.0-0.2) /100WBC Sodium 134 L (135-145) mmol/L Potassium 4.1 (3.3-5.1) mmol/L Chloride 103 (96-108) mmol/L Carbon Dioxide 23 (22-29) mmol/L Anion Gap 12 (12-20) BUN 7 L (9-16) mg/dL Creatinine 0.58 (0.5-1.4) mg/dL Estim Creat Clear Calc 119.7 Estimated GFR > 60 Random Glucose 82 (60-115) mg/dL Calcium 10.2 (8.4-10.2) mg/dL Total Bilirubin 1.1 H (0.0-1.0) mg/dL Direct Bilirubin 0.4 (0.0-0.5) mg/dL AST 14 (5-31) U/L ALT 8 (0-31) U/L Alkaline Phosphatase 41 (39-117) U/L Total Protein 6.7 (6.5-8.0) g/dL Albumin 4.2 (3.5-5.0) g/dL Lipase 11 (8-78) U/L Urine Color YELLOW Urine Appearance CLOUDY Urine pH 7.0 (5.0-8.0) Ur Specific [place] 1.015 (1.005-1.025) Urine Protein NEG (NEG-TRACE) MG/DL Urine Glucose (UA) NEG (NEG) MG/DL Urine Ketones NEG (NEG) MG/DL Urine Blood TRACE (NEG) Urine Nitrite POS H (NEG) Ur Leukocyte Esterase NEG (NEG) Urine Test (NEGATIVE) 07/05/21 Range/Units 20:36 WBC (4.8-10.8) X10*3/uL RBC (4.20-5.50) X10*6/uL Hgb (12.0-16.0) g/dl Hct (37.0-47.0) % MCV (80.0-98.0) fL MCH (27.0-33.0) pg MCHC (31.0-35.0) g/dl RDW (11.0-16.0) % Plt Count (160-400) X10*3/uL MPV (9.4-12.3) fL Immature Gran % (Auto) (0.0-0.4) % Neut % (Auto) (45-73) % Lymph % (Auto) (20-40) % [place] % (Auto) (2-11) % Eos % (Auto) (0-4) % Baso % (Auto) (0-2) % Lymph # (Auto) (1.2-4.9) X10*3/uL [place] # (Auto) (0.1-1.2) X10*3/uL Eos # (Auto) (0.0-0.4) X10*3/uL Baso # (Auto) (0.0-0.2) X10*3/uL Abs Immat Gran (auto) (0.00-0.03) X10*3/uL Absolute Neuts (auto) (2.0-8.3) x10*3/uL Absolute Nucleated RBC (0.0-0.012) X10*3/uL Nucleated RBC % (auto) (0.0-0.2) /100WBC Sodium (135-145) mmol/L Potassium (3.3-5.1) mmol/L Chloride (96-108) mmol/L Carbon Dioxide (22-29) mmol/L Anion Gap (12-20) BUN (9-16) mg/dL Creatinine (0.5-1.4) mg/dL Estim Creat Clear Calc Estimated GFR Random Glucose (60-115) mg/dL Calcium (8.4-10.2) mg/dL Total Bilirubin (0.0-1.0) mg/dL Direct Bilirubin (0.0-0.5) mg/dL AST (5-31) U/L ALT (0-31) U/L Alkaline Phosphatase (39-117) U/L Total Protein (6.5-8.0) g/dL Albumin (3.5-5.0) g/dL Lipase (8-78) U/L Urine Color Urine Appearance Urine pH (5.0-8.0) Ur Specific [place] (1.005-1.025) Urine Protein (NEG-TRACE) MG/DL Urine Glucose (UA) (NEG) MG/DL Urine Ketones (NEG) MG/DL Urine Blood (NEG) Urine Nitrite (NEG) Ur Leukocyte Esterase (NEG) Urine Test POSITIVE H (NEGATIVE) Imaging Data Gallbladder ultrasound: Attestation: I personally reviewed and interpreted this imaging study as follows: Radiologist's impression: Morphologically normal-appearing gallbladder without stones. Discharge Plan Discharge Clinical Impression: Gastritis, Early stage of , UTI (urinary tract infection) during Patient Disposition: Home, Self-Care Instructions: Gastritis (ED), Urinary Tract Infection in (ED) Additional Instructions: Eat small frequent meals, do not eat at least 3 hours before you sleeping time, use 3 pillows under your head to elevate your head while sleeping, drink plenty of fluids, avoid greasy, fatty, spicy foods. Prescriptions: New nitrofurantoin monohyd/m-cryst [Macrobid] 100 mg capsule 100 mg PO Q12H 7 Days Qty: 14 0RF Rx Instructions: must administer with a meal/food No Action ondansetron 4 mg tablet,disintegrating 4 mg PO Q6-8H PRN (Reason: nausea and vomiting) Qty: 20 0RF lorazepam [Ativan] 1 mg tablet 1 mg PO DAILY PRN (Reason: anxiety) Qty: 14 0RF sulfamethoxazole-trimethoprim [Bactrim DS] 800-160 mg tablet 1 tab PO BID Qty: 6 0RF ondansetron 4 mg tablet,disintegrating 4 mg PO TID PRN (Reason: nausea and vomiting) 5 Days Qty: 10 0RF dicyclomine 20 mg tablet 20 mg PO TID PRN (Reason: pain (scale score 4-6)) Qty: 20 0RF acetaminophen 500 mg capsule 500 mg PO Q6H PRN (Reason: fever) 60 Days Qty: 90 3RF vitamin B complex Tablet 1 tab PO DAILY 60 Days Qty: 60 3RF pantoprazole 40 mg tablet,delayed release (DR/EC) 40 mg PO BID 30 Days Qty: 60 3RF Referrals: Bandar Lomax [Physician] - 2 days
[2021-07-05 18:31] VITALS: BP 109/65; PULSE 121; RESP 24; TEMP 36.9; O2SAT 98
[2021-07-05 18:43] LABS: MANUAL DIFF FLAG NO
[2021-07-05 18:44] LABS: Basophils Percent Auto 0.2 % (0-2); Eosinophils Absolute Auto 0.1 X10*3/uL (0.0-0.4); Eosinophils Percent Auto 0.5 % (0-4); Hematocrit 32.8 % (37.0-47.0); Hemoglobin 11.4 g/dl (12.0-16.0); Imm Gran Abs Auto 0.07 X10*3/uL (0.00-0.03); Imm Gran Pct Auto 0.5 % (0.0-0.4); Lymphocytes Absolute Auto 2.3 X10*3/uL (1.2-4.9); Lymphocytes Percent Auto 15.6 % (20-40); Mean Corpuscular HGB Conc 34.8 g/dl (31.0-35.0); Mean Corpuscular Hemoglobin 32.6 pg (27.0-33.0); Mean Corpuscular Volume 93.7 fL (80.0-98.0); Mean Platelet Volume 8.8 fL (9.4-12.3); Monocytes Absolute Auto 0.8 X10*3/uL (0.1-1.2); Monocytes Percent Auto 5.4 % (2-11); Neutrophils Absolute Auto 11.6 x10*3/uL (2.0-8.3); Neutrophils Percent Auto 77.8 % (45-73); Platelet Count 346 X10*3/uL (160-400); Red Cell Distribution Width 13.4 % (11.0-16.0); White Blood Count 14.9 X10*3/uL (4.8-10.8)
[2021-07-05 19:01] LABS: Alanine Aminotransferase 8 U/L (0-31); Albumin Level 4.2 g/dL (3.5-5.0); Alkaline Phosphatase 41 U/L (39-117); Anion Gap 12 (12-20); Aspartate Amino Transferase 14 U/L (5-31); Bilirubin Direct 0.4 mg/dL (0.0-0.5); Bilirubin Total 1.1 mg/dL (0.0-1.0); Blood Urea Nitrogen 7 mg/dL (9-16); Calcium 10.2 mg/dL (8.4-10.2); Carbon Dioxide 23 mmol/L (22-29); Chloride 103 mmol/L (96-108); Creatinine Clr Calc Pharmacy 119.7; Estimated Glomerular Filt Rate > 60; Glucose Random 82 mg/dL (60-115); Lipase 11 U/L (8-78); Potassium 4.1 mmol/L (3.3-5.1); Sodium 134 mmol/L (135-145); Total Protein 6.7 g/dL (6.5-8.0)
[2021-07-05] MEDS: ondansetron HCL 4 MG/2 ML VIAL IVPUSH (19:41)
[2021-07-05] MEDS: 0.9 % Sodium Chloride 1,000 ML 999 ML IV (19:41)
[2021-07-05 20:47] LABS: Appearance Urine CLOUDY; Color Urine YELLOW; Glucose Urine UA NEG (NEG); Leukocyte Esterase Urine NEG (NEG); Nitrite Urine POS (NEG); Specific Gravity - Urine 1.015 (1.005-1.025); UACC Culture Trigger YES; Urine Blood TRACE (NEG); Urine Ketones NEG (NEG); Urine Protein NEG (NEG-TRACE)
[2021-07-05 20:49] LABS: UPreg QC Valid YES; Urine Pregnancy POSITIVE (NEGATIVE)
[2021-07-05 21:08] LABS: Bacteria Urine 4+ /LPF; Mucus Urine 3+ /LPF; RBC Urine 0-2 /HPF (0); Squamous Epithelial Cell Urine 3+ /LPF
[2021-07-05 21:13] VITALS: BP 102/49; PULSE 106; RESP 22; TEMP 36.9; O2SAT 100
[2021-07-05] MEDS: Nitrofurantoin Monohyd/M-Cryst 100 MG CAPSULE PO (21:19)
== END 2021-07-05 21:52 | disposition home or self-care (01) ==
PROVIDERS: Emergency Provider Emergency Medicine
DX: O23.41 Unspecified infection of urinary tract in pregnancy, first trimester (principal); K29.70 Gastritis, unspecified, without bleeding; R10.13 Epigastric pain; N39.0 Urinary tract infection, site not specified; Z3A.08 8 weeks gestation of pregnancy; Z79.899 Other long term (current) drug therapy
CPT/HCPCS: 36415; 76705; 80048; 80076; 81001; 81025; 83690; 85025; 87086; 87088; 87186; 96361; 96374; 99283; 99284; J2405

== ENCOUNTER 2021-07-13 07:20 | Emergency (ER) | payer MEDICAID, SELFPAY ==
[2021-07-13 07:26] VITALS: BP 109/79; BP 126/61; PULSE 106; PULSE 94; RESP 20; TEMP 36.8; O2SAT 100; O2SAT 98; BMI 19.3
--- NOTE | 2021-07-13 08:22 | ED_ITS ---
HPI - Abdominal Pain General Chief Complaint: Abdominal Pain Stated Complaint: ABD PAIN X'S 3 DAYS Time Seen by Provider: 07/13/21 08:01 Source: patient Mode of arrival: ambulatory Limitations: no limitations History of Present Illness HPI narrative: 21-year-old female with a history of gastroparesis, chronic upper abdominal pain x2 years, anxiety who is 8 weeks with her 1st child who presents to the ER with worsening epigastric abdominal pain for the last 3 or 4 days. On arrival to the ER she is writhing in pain rolling around on the stretcher. She states she was told the past that the pain was due to too much acid, she has been on omeprazole and Bentyl with no improvement in any of her symptoms. She reports that she has made significant dietary restrictions, eats things like applesauce and salads, avoid spicy and acidic foods. This has made no difference in her abdominal pain. She states for the last 3 or 4 days the pain has been unbearable. It wakes her up in the middle the night. She denies any fever, chills, nausea, vomiting, lower abdominal cramping, vaginal bleeding. MD elicited complaint: abdominal pain Pertinent past history: none Onset (ago): year(s) Pain Consistency: constant Location: epigastric Severity: severe Quality: stabbing Radiation: none Migration to: no migration Exacerbating factors: eating Relieving factors: nothing Context: history of similar episodes Associated symptoms: denies other symptoms Related Data Patient : Yes Previous Rx's Medication Instructions Recorded vitamin B complex 1 tab PO DAILY 60 Days #60 tab 04/06/20 pantoprazole 40 mg tablet,delayed 40 mg PO BID 30 Days #60 tab 07/08/20 release ondansetron 4 mg disintegrating 4 mg PO TID PRN 5 Days #10 tab 11/13/20 tablet sulfamethoxazole 800 1 tab PO BID #6 tab 11/13/20 mg-trimethoprim 160 mg tablet (Bactrim DS) acetaminophen 500 mg capsule 500 mg PO Q6H PRN 60 Days #90 cap 11/16/20 lorazepam 1 mg tablet (Ativan) 1 mg PO DAILY PRN #14 tab 12/05/20 ondansetron 4 mg disintegrating 4 mg PO Q6-8H PRN #20 tab 12/05/20 tablet dicyclomine 20 mg tablet 20 mg PO TID PRN #20 tab 01/02/21 nitrofurantoin 100 mg PO Q12H 7 Days #14 cap 07/05/21 monohydrate/macrocrystals 100 mg capsule (Macrobid) Allergies Allergy/AdvReac Type Severity Reaction Status Date / Time No Known Allergies Allergy Verified 11/15/20 18:24 [No Known Allergies*] Review of Systems Review of Systems Constitutional: No Fever, No Chills ENT/Mouth: No sore throat, No Rhinorrhea, No Swallowing Difficulty Cardiovascular: No Chest Pain, No SOB, No Orthopnea, No Edema Respiratory: No Cough, No Sputum, No Wheezing, No dyspnea Gastrointestinal: No Nausea, No Vomiting, No Diarrhea,+ abdominal Pain, No Hematochezia, No Melena Genitourinary: No Dysuria, No Urinary Frequency, No Hematuria Musculoskeletal: No joint pain, No Myalgias Skin: No Skin Lesions, No rash Neuro: No Weakness, No Dizziness, No Headache Psych: + Anxiety/Panic, No Depression Heme/Lymph: No Bruising, No Lymphadenopathy Endocrine: No Polyuria, No Polydipsia PMFSH Past Medical History Medical History ADHD Anxiety Gastritis Gastroparesis Surgical History Hx of endoscopy Family History Family History Maternal Grandmother Asthma HTN (hypertension) Breast cancer Gallstones Maternal Grandmother Intestines cancer Social History Social History Household Members: Family Alcohol intake: unknown Patient Tobacco Use Status: Current someday Tobacco user Tobacco use type: Cigarette Second Hand Smoke Exposure: No Substance Use Type: Marijuana Advance Directives: No Advance Directives Information Provided: No Patient : Yes Current occupational status: unemployed Physical Exam ED Vital Signs: Vital Signs - 24 hr 07/13/21 07:26 07/13/21 08:53 Temperature 98.2 F Pulse Rate 94 96 Respiratory Rate 20 16 Blood Pressure 126/61 116/79 Pulse Oximetry 100 98 BMI result Body Mass Index 19.3 Appearance: Alert. Oriented X3. Lying sideways on the stretcher rolling around in pain. Eyes: Pupils equal, round and reactive to light. ENT: Pharynx normal. Neck: Normal inspection. Neck supple. CVS: Normal heart rate and rhythm. Pulses normal. Respiratory: No respiratory distress. Breath sounds normal. Abdomen: Thin, flat. Soft with moderate epigastric tenderness. No right upper quadrant tenderness. +BS x4 pelvic deferred. Skin: Skin warm and dry. Normal skin color. Normal skin turgor. No rashes. Extremities: No lower extremity edema. Neuro: Oriented X 3. Grossly normal, nonfocal. Course Course Course Narrative: 21-year-old female with history of GERD, gastroparesis, nausea and vomiting, anxiety who is 8 weeks presents to the ER with epigastric abdominal pain for the last 3 or 4 days. No nausea, vomiting, cramping or vaginal bleeding. She has had this pain for the last [address] Proctor in the past. Is in worse for last 4 days. She arrives writhing around in pain on the stretcher. Will give a GI cocktail, ppi, Reglan and reassess. Basic labs ordered including lipase and LFTs. Reevaluation(s) Reevaluation #1: Lab workup is normal. HCG is appropriate. Pelvic deferred, no need for pelvic ultrasound at this time, no concerns with the . She is feeling much better. She is tolerating p.o.. She is stable for discharge home with plans to continue her Protonix and follow up with GI and her PCP. Recommended p.r.n. Tums and diet modifications. Patient agrees with plan and is stable for DC. MDM - Abdominal Pain Lab Data Result diagrams: 07/13/21 08:30 07/13/21 08:30 Labs: Lab Results 07/13/21 07/13/21 07/13/21 Range/Units 08:30 08:30 08:30 WBC 10.8 (4.8-10.8) X10*3/uL RBC 3.39 L (4.20-5.50) X10*6/uL Hgb 10.9 L (12.0-16.0) g/dl Hct 33.0 L (37.0-47.0) % MCV 97.3 (80.0-98.0) fL MCH 32.2 (27.0-33.0) pg MCHC 33.0 (31.0-35.0) g/dl RDW 13.2 (11.0-16.0) % Plt Count 308 (160-400) X10*3/uL MPV 9.0 L (9.4-12.3) fL Immature Gran % (Auto) 0.5 H (0.0-0.4) % Neut % (Auto) 70.2 (45-73) % Lymph % (Auto) 20.9 (20-40) % [place] % (Auto) 7.3 (2-11) % Eos % (Auto) 0.9 (0-4) % Baso % (Auto) 0.2 (0-2) % Lymph # (Auto) 2.3 (1.2-4.9) X10*3/uL [place] # (Auto) 0.8 (0.1-1.2) X10*3/uL Eos # (Auto) 0.1 (0.0-0.4) X10*3/uL Baso # (Auto) 0.0 (0.0-0.2) X10*3/uL Abs Immat Gran (auto) 0.05 H (0.00-0.03) X10*3/uL Absolute Neuts (auto) 7.6 (2.0-8.3) x10*3/uL Absolute Nucleated RBC 0.000 (0.0-0.012) X10*3/uL Nucleated RBC % (auto) 0.0 (0.0-0.2) /100WBC Sodium 135 (135-145) mmol/L Potassium 4.4 (3.3-5.1) mmol/L Chloride 105 (96-108) mmol/L Carbon Dioxide 24 (22-29) mmol/L Anion Gap 10 L (12-20) BUN 9 (9-16) mg/dL Creatinine 0.54 (0.5-1.4) mg/dL Estim Creat Clear Calc 133.8 Estimated GFR > 60 Random Glucose 80 (60-115) mg/dL Calcium 9.5 D (8.4-10.2) mg/dL Magnesium 1.8 (1.6-2.6) mg/dL Total Bilirubin 0.7 (0.0-1.0) mg/dL Direct Bilirubin 0.3 (0.0-0.5) mg/dL AST 12 (5-31) U/L ALT 11 (0-31) U/L Alkaline Phosphatase 39 (39-117) U/L Total Protein 6.4 L (6.5-8.0) g/dL Albumin 3.9 (3.5-5.0) g/dL Lipase 17 (8-78) U/L Beta HCG, Quant 517310 mIU/mL COVID-19 ([facility]) Negative (Negative) COVID-19 Clin Com See Note Critical Care Time Critical Care Time Critical Care Time: No Discharge Plan Discharge Clinical Impression: Gastritis Patient Disposition: Home, Self-Care Instructions: Gastritis (DC), Diet for Stomach Ulcers and Gastritis (ED) Additional Instructions: Continue taking all of your previously prescribed medications. Stick to a bland diet, avoid spicy and acidic foods. Follow-up with your doctor and your GI doctor. If you develop new or worsening symptoms call 911 or come back to the ER for further evaluation. Prescriptions: No Action ondansetron 4 mg tablet,disintegrating 4 mg PO Q6-8H PRN (Reason: nausea and vomiting) Qty: 20 0RF lorazepam [Ativan] 1 mg tablet 1 mg PO DAILY PRN (Reason: anxiety) Qty: 14 0RF sulfamethoxazole-trimethoprim [Bactrim DS] 800-160 mg tablet 1 tab PO BID Qty: 6 0RF ondansetron 4 mg tablet,disintegrating 4 mg PO TID PRN (Reason: nausea and vomiting) 5 Days Qty: 10 0RF dicyclomine 20 mg tablet 20 mg PO TID PRN (Reason: pain (scale score 4-6)) Qty: 20 0RF nitrofurantoin monohyd/m-cryst [Macrobid] 100 mg capsule 100 mg PO Q12H 7 Days Qty: 14 0RF Rx Instructions: must administer with a meal/food acetaminophen 500 mg capsule 500 mg PO Q6H PRN (Reason: fever) 60 Days Qty: 90 3RF vitamin B complex Tablet 1 tab PO DAILY 60 Days Qty: 60 3RF pantoprazole 40 mg tablet,delayed release (DR/EC) 40 mg PO BID 30 Days Qty: 60 3RF
[2021-07-13] MEDS: Magnesium Hydrox/Alum Hydrox 30 ML ORAL.SUSP PO (08:27)
[2021-07-13] MEDS: Lidocaine HCl Viscous 2 % 15 ML SOLUTION MUCOUS MEM (08:27)
[2021-07-13] MEDS: Omeprazole 40 MG CAPSULE.DR PO (08:30)
[2021-07-13 08:36] LABS: MANUAL DIFF FLAG NO
[2021-07-13 08:40] LABS: Basophils Percent Auto 0.2 % (0-2); Eosinophils Absolute Auto 0.1 X10*3/uL (0.0-0.4); Eosinophils Percent Auto 0.9 % (0-4); Hemoglobin 10.9 g/dl (12.0-16.0); Imm Gran Abs Auto 0.05 X10*3/uL (0.00-0.03); Imm Gran Pct Auto 0.5 % (0.0-0.4); Lymphocytes Absolute Auto 2.3 X10*3/uL (1.2-4.9); Lymphocytes Percent Auto 20.9 % (20-40); Mean Corpuscular Hemoglobin 32.2 pg (27.0-33.0); Mean Corpuscular Volume 97.3 fL (80.0-98.0); Monocytes Absolute Auto 0.8 X10*3/uL (0.1-1.2); Monocytes Percent Auto 7.3 % (2-11); Neutrophils Absolute Auto 7.6 x10*3/uL (2.0-8.3); Neutrophils Percent Auto 70.2 % (45-73); Platelet Count 308 X10*3/uL (160-400); Red Blood Count 3.39 X10*6/uL (4.20-5.50); Red Cell Distribution Width 13.2 % (11.0-16.0); White Blood Count 10.8 X10*3/uL (4.8-10.8)
[2021-07-13] MEDS: Metoclopramide HCl 10 MG TABLET PO (08:40)
[2021-07-13 08:53] VITALS: BP 116/79; PULSE 96; RESP 16; O2SAT 98
[2021-07-13 08:53] LABS: Alanine Aminotransferase 11 U/L (0-31); Albumin Level 3.9 g/dL (3.5-5.0); Alkaline Phosphatase 39 U/L (39-117); Anion Gap 10 (12-20); Aspartate Amino Transferase 12 U/L (5-31); Bilirubin Direct 0.3 mg/dL (0.0-0.5); Bilirubin Total 0.7 mg/dL (0.0-1.0); Blood Urea Nitrogen 9 mg/dL (9-16); Calcium 9.5 mg/dL (8.4-10.2); Carbon Dioxide 24 mmol/L (22-29); Chloride 105 mmol/L (96-108); Creatinine Clr Calc Pharmacy 133.8; Estimated Glomerular Filt Rate > 60; Glucose Random 80 mg/dL (60-115); Lipase 17 U/L (8-78); Magnesium 1.8 mg/dL (1.6-2.6); Potassium 4.4 mmol/L (3.3-5.1); Sodium 135 mmol/L (135-145); Total Protein 6.4 g/dL (6.5-8.0)
[2021-07-13 09:14] LABS: COVID-19 Test Negative (Negative)
[2021-07-13 09:58] LABS: HCG Quantitative 219790 mIU/mL
[2021-07-13 10:42] LABS: Appearance Urine CLEAR; Color Urine YELLOW; Glucose Urine UA NEG (NEG); Leukocyte Esterase Urine NEG (NEG); Nitrite Urine NEG (NEG); Urine Blood NEG (NEG); Urine Ketones NEG (NEG); Urine Protein NEG (NEG-TRACE)
== END 2021-07-13 10:57 | disposition home or self-care (01) ==
PROVIDERS: Physician Assistant; Emergency Provider Emergency Medicine
DX: K29.70 Gastritis, unspecified, without bleeding (principal); R10.13 Epigastric pain; F17.210 Nicotine dependence, cigarettes, uncomplicated; Z71.6 Tobacco abuse counseling; Z20.822 Contact with and (suspected) exposure to COVID-19; Z79.899 Other long term (current) drug therapy
CPT/HCPCS: 36415; 80048; 80076; 81003; 83690; 83735; 84702; 85025; 87635; 99283; 99284

== ENCOUNTER 2021-07-21 12:28 | Emergency (ER) | payer MEDICAID, SELFPAY ==
[2021-07-21 12:34] VITALS: BP 142/76; PULSE 122; O2SAT 97
== END 2021-07-21 14:25 | disposition left against medical advice (07) ==
LOC: HO.ED 14:23
PROVIDERS: Emergency Provider Emergency Medicine
DX: O21.9 Vomiting of pregnancy, unspecified (principal); Z3A.00 Weeks of gestation of pregnancy not specified

== ENCOUNTER 2021-08-02 11:10 | Outpatient (REF) | payer MEDICAID, SELFPAY ==
[2021-08-02 12:40] LABS: Appearance Urine CLEAR; Color Urine YELLOW; Glucose Urine UA NEG (NEG); Leukocyte Esterase Urine NEG (NEG); Nitrite Urine NEG (NEG); Specific Gravity - Urine >= 1.030 (1.005-1.025); UACC Culture Trigger NO; Urine Blood TRACE (NEG); Urine Ketones NEG (NEG); Urine Protein NEG (NEG-TRACE)
[2021-08-02 12:59] LABS: WBC Urine 0-2 /HPF (0-4)
[2021-08-02 13:00] LABS: Mucus Urine TRACE /LPF; RBC Urine 0-2 /HPF (0); Squamous Epithelial Cell Urine 4+ /LPF
== END 2021-08-02 11:11 | disposition home or self-care (01) ==
LOC: HO.LAB 11:10
PROVIDERS: PCP Nurse Practitioner; Visit Provider Internal Medicine Gastroenterology
DX: R30.0 Dysuria (principal); R10.10 Upper abdominal pain, unspecified; R11.2 Nausea with vomiting, unspecified
CPT/HCPCS: 81001

== ENCOUNTER 2021-08-05 12:39 | Outpatient (REF) | payer MEDICAID, SELFPAY ==
--- NOTE | ~2021-08-05 | US_ITS ---
EXAMINATION: US ABDOMEN COMPLETE CLINICAL INFORMATION: Upper abdominal pain. . COMPARISON: Ultrasound abdomen limited 07/05/2021 and 12/12/2020. CT abdomen and pelvis 11/13/2020. MRI abdomen 12/29/2019. TECHNIQUE: Real-time imaging of the abdominal viscera. FINDINGS: PANCREAS: Normal. ABDOMINAL AORTA: The proximal, mid, and distal segments are normal in caliber. INFERIOR VENA CAVA: Visualized portions are normal. LIVER: Normal. The liver is normal in size. The liver contour is normal. Parenchymal echogenicity is normal. No focal hepatic lesion. There is no intrahepatic biliary duct dilatation seen. GALLBLADDER: Normal. The gallbladder is physiologically distended without evidence of stones, sludge, polyps, wall thickening or pericholecystic fluid. COMMON BILE DUCT: Normal in caliber measuring 0.4 cm in diameter. RIGHT KIDNEY: Normal. No hydronephrosis. No renal calculi or focal parenchymal lesions. The kidney measures 11.7 cm in maximum dimension. LEFT KIDNEY: Normal. No hydronephrosis. No renal calculi or focal parenchymal lesions. The kidney measures 10.0 cm in maximum dimension. SPLEEN: Normal. The spleen measures 9 cm in maximum dimension. FREE FLUID: None. US/US abdomen complete IMPRESSION: Normal abdominal ultrasound.
== END 2021-08-05 12:40 | disposition home or self-care (01) ==
LOC: HO.US 12:39
PROVIDERS: PCP Nurse Practitioner; Visit Provider Internal Medicine Gastroenterology
DX: R10.10 Upper abdominal pain, unspecified (principal); R11.2 Nausea with vomiting, unspecified
CPT/HCPCS: 76700

== ENCOUNTER 2022-05-01 15:28 | Emergency (ER) | payer MEDICAID, SELFPAY ==
[2022-05-01 15:34] VITALS: BP 120/88; PULSE 74; O2SAT 99
[2022-05-01 15:54] VITALS: BP 123/96; PULSE 98; RESP 20; TEMP 36.5; O2SAT 97; BMI 17.2
--- NOTE | 2022-05-01 15:57 | ED_ITS ---
HPI - General Adult General Chief complaint: Abdominal Pain Stated complaint: abd pain Related Data Previous Rx's Medication Instructions Recorded vitamin B complex 1 tab PO DAILY 60 days #60 tabs 04/06/20 pantoprazole 40 mg tablet,delayed 40 mg PO BID 30 days #60 tabs 07/08/20 release ondansetron 4 mg disintegrating 4 mg PO TID PRN nausea and 11/13/20 tablet vomiting 5 days #10 tabs sulfamethoxazole 800 1 tab PO BID UTI #6 tabs 11/13/20 mg-trimethoprim 160 mg tablet (Bactrim DS) acetaminophen 500 mg capsule 500 mg PO Q6H PRN fever 2 months 11/16/20 #90 caps lorazepam 1 mg tablet (Ativan) 1 mg PO DAILY PRN anxiety #14 tabs 12/05/20 ondansetron 4 mg disintegrating 4 mg PO Q6-8H PRN nausea and 12/05/20 tablet vomiting #20 tabs dicyclomine 20 mg tablet 20 mg PO TID PRN pain (scale score 01/02/21 4-6) #20 tabs nitrofurantoin 100 mg PO Q12H 7 days #14 caps 07/05/21 monohydrate/macrocrystals 100 mg capsule (Macrobid) famotidine 40 mg tablet (Pepcid) 40 mg PO BEDTIME #90 tabs 08/01/21 pyridoxine (vitamin B6) 25 mg 25 mg PO TID #90 tabs 08/02/21 tablet Allergies Allergy/AdvReac Type Severity Reaction Status Date / Time No Known Allergies Allergy Verified 11/15/20 18:24 [No Known Allergies*] [facility] Past Medical History Medical History ADHD Anxiety Gastritis Gastroparesis Surgical History Hx of endoscopy Family History Family History Maternal Grandmother Asthma HTN (hypertension) Breast cancer Gallstones Maternal Grandmother Intestines cancer Social History Social History Household Members: Family Alcohol intake: unknown Patient Tobacco Use Status: Current someday Tobacco user Tobacco use type: Cigarette Second Hand Smoke Exposure: No Substance Use Type: Marijuana Advance Directives: No Advance Directives Information Provided: No Current occupational status: unemployed Physical Exam ED Vital Signs: Vital Signs - 24 hr 05/01/22 15:54 Temperature 97.7 F Pulse Rate 98 Respiratory Rate 20 Blood Pressure 123/96 H Pulse Oximetry 97 Oxygen Delivery Method Room Air BMI result Body Mass Index 17.2 Course Course Course Narrative: RmE: 21 yold female presents to the ED for epigastric pain after steak and rice. Labs and abdominal ultrasound ordered. Vital signs stable. Medical Decision Making Lab Data 05/01/22 16:53 05/01/22 16:53 Labs: Lab Results 05/01/22 05/01/22 Range/Units 16:53 16:53 WBC 7.4 (4.8-10.8) X10*3/uL RBC 4.68 D (4.20-5.50) X10*6/uL Hgb 14.1 D (12.0-16.0) g/dl Hct 40.5 D (37.0-47.0) % MCV 86.5 (80.0-98.0) fL MCH 30.1 (27.0-33.0) pg MCHC 34.8 (31.0-35.0) g/dl RDW 12.3 (11.0-16.0) % Plt Count 360 (160-400) X10*3/uL MPV 9.0 L (9.4-12.3) fL Immature Gran % (Auto) 0.3 (0.0-0.4) % Neut % (Auto) 62.8 (45-73) % Lymph % (Auto) 28.4 (20-40) % [place] % (Auto) 7.3 (2-11) % Eos % (Auto) 0.8 (0-4) % Baso % (Auto) 0.4 (0-2) % Lymph # (Auto) 2.1 (1.2-4.9) X10*3/uL [place] # (Auto) 0.5 (0.1-1.2) X10*3/uL Eos # (Auto) 0.1 (0.0-0.4) X10*3/uL Baso # (Auto) 0.0 (0.0-0.2) X10*3/uL Abs Immat Gran (auto) 0.02 (0.00-0.03) X10*3/uL Absolute Neuts (auto) 4.7 (2.0-8.3) x10*3/uL Absolute Nucleated RBC 0.000 (0.0-0.012) X10*3/uL Nucleated RBC % (auto) 0.0 (0.0-0.2) /100WBC Sodium 138 (135-145) mmol/L Potassium 4.5 (3.3-5.1) mmol/L Chloride 107 (96-108) mmol/L Carbon Dioxide 19 L (22-29) mmol/L Anion Gap 17 (12-20) BUN 13 (9-16) mg/dL Creatinine 0.73 (0.5-1.4) mg/dL Estim Creat Clear Calc 88.0 Estimated GFR > 60 Random Glucose 83 (60-115) mg/dL Calcium 9.9 (8.4-10.2) mg/dL Total Bilirubin 4.1 H (0.0-1.0) mg/dL AST 22 D (5-31) U/L ALT 19 (0-31) U/L Alkaline Phosphatase 47 D (39-117) U/L Total Protein 8.0 D (6.5-8.0) g/dL Albumin 4.9 D (3.5-5.0) g/dL Lipase 16 (8-78) U/L Beta HCG, Quant < 2 mIU/mL Discharge Plan Discharge Clinical Impression: Abdominal pain Patient Disposition: Elopement Prescriptions: No Action famotidine [Pepcid] 40 mg tablet 40 mg PO BEDTIME Qty: 90 1RF pyridoxine (vitamin B6) 25 mg tablet 25 mg PO TID Qty: 90 1RF ondansetron 4 mg tablet,disintegrating 4 mg PO Q6-8H PRN (Reason: nausea and vomiting) Qty: 20 0RF lorazepam [Ativan] 1 mg tablet 1 mg PO DAILY PRN (Reason: anxiety) Qty: 14 0RF sulfamethoxazole-trimethoprim [Bactrim DS] 800-160 mg tablet 1 tab PO BID Qty: 6 0RF ondansetron 4 mg tablet,disintegrating 4 mg PO TID PRN (Reason: nausea and vomiting) 5 Days Qty: 10 0RF dicyclomine 20 mg tablet 20 mg PO TID PRN (Reason: pain (scale score 4-6)) Qty: 20 0RF nitrofurantoin monohyd/m-cryst [Macrobid] 100 mg capsule 100 mg PO Q12H 7 Days Qty: 14 0RF Rx Instructions: must administer with a meal/food acetaminophen 500 mg capsule 500 mg PO Q6H PRN (Reason: fever) 60 Days Qty: 90 3RF vitamin B complex Tablet 1 tab PO DAILY 60 Days Qty: 60 3RF pantoprazole 40 mg tablet,delayed release (DR/EC) 40 mg PO BID 30 Days Qty: 60 3RF Discharge Date/Time: 05/01/22 20:37
[2022-05-01 16:57] LABS: MANUAL DIFF FLAG NO
[2022-05-01 17:02] LABS: Basophils Percent Auto 0.4 % (0-2); Eosinophils Absolute Auto 0.1 X10*3/uL (0.0-0.4); Eosinophils Percent Auto 0.8 % (0-4); Hematocrit 40.5 % (37.0-47.0); Hemoglobin 14.1 g/dl (12.0-16.0); Imm Gran Abs Auto 0.02 X10*3/uL (0.00-0.03); Imm Gran Pct Auto 0.3 % (0.0-0.4); Lymphocytes Absolute Auto 2.1 X10*3/uL (1.2-4.9); Lymphocytes Percent Auto 28.4 % (20-40); Mean Corpuscular HGB Conc 34.8 g/dl (31.0-35.0); Mean Corpuscular Hemoglobin 30.1 pg (27.0-33.0); Mean Corpuscular Volume 86.5 fL (80.0-98.0); Monocytes Absolute Auto 0.5 X10*3/uL (0.1-1.2); Monocytes Percent Auto 7.3 % (2-11); Neutrophils Absolute Auto 4.7 x10*3/uL (2.0-8.3); Neutrophils Percent Auto 62.8 % (45-73); Platelet Count 360 X10*3/uL (160-400); Red Blood Count 4.68 X10*6/uL (4.20-5.50); Red Cell Distribution Width 12.3 % (11.0-16.0); White Blood Count 7.4 X10*3/uL (4.8-10.8)
[2022-05-01 17:34] LABS: Alanine Aminotransferase 19 U/L (0-31); Albumin Level 4.9 g/dL (3.5-5.0); Alkaline Phosphatase 47 U/L (39-117); Anion Gap 17 (12-20); Aspartate Amino Transferase 22 U/L (5-31); Bilirubin Total 4.1 mg/dL (0.0-1.0); Blood Urea Nitrogen 13 mg/dL (9-16); Calcium 9.9 mg/dL (8.4-10.2); Carbon Dioxide 19 mmol/L (22-29); Chloride 107 mmol/L (96-108); Estimated Glomerular Filt Rate > 60; Glucose Random 83 mg/dL (60-115); Lipase 16 U/L (8-78); Potassium 4.5 mmol/L (3.3-5.1); Sodium 138 mmol/L (135-145)
[2022-05-01 17:37] LABS: HCG Quantitative < 2 mIU/mL
--- NOTE | 2022-05-01 20:10 | PC.NURSE ---
pt not in waiting room at this time.
--- NOTE | 2022-05-01 20:20 | PC.NURSE ---
Pt called to take to a room, Pt not in waiting room at this time.
--- NOTE | 2022-05-01 20:30 | PC.NURSE ---
Pt called to go back to a room, pt not in waiting room.
--- OUTSIDE RECORDS SUMMARY | 2022-05-01 20:39 | XMS_ITS | Continuity of Care Document ---
:2000 Demographics
--- OUTSIDE RECORDS SUMMARY | 2022-05-01 20:39 | XMS_ITS | Continuity of Care Document ---
:2000 Demographics
--- OUTSIDE RECORDS SUMMARY | 2022-05-01 20:39 | XMS_ITS | Continuity of Care Document ---
:2000 Author Organization [facility] Address [address] [place] [address]- Care Team Providers
--- OUTSIDE RECORDS SUMMARY | 2022-05-01 20:39 | XMS_ITS | Continuity of Care Document ---
:2000 Author Organization [facility] [employer] [facility] Address [address] [place] [address], [place] [address]- Care Team Providers Name Role Phone Claribel JACQUES, Crista Colón Primary Care Physician [phone]
== END 2022-05-01 20:37 | disposition left against medical advice (07) ==
PROVIDERS: Physician Assistant; Emergency Provider Emergency Medicine
DX: R10.13 Epigastric pain (principal); F17.210 Nicotine dependence, cigarettes, uncomplicated
CPT/HCPCS: 36415; 76705; 80053; 83690; 84702; 85025; 99281; 99284

== ENCOUNTER 2024-03-20 14:26 | Outpatient (REF) | payer MEDICAID, SELFPAY ==
[2024-03-20 16:15] LABS: Appearance Urine Cloudy; Color Urine Yellow; Glucose Urine UA Negative (Negative); Leukocyte Esterase Urine Negative (Negative); Nitrite Urine Negative (Negative); Specific Gravity - Urine 1.025 (1.005-1.025); UMIC TRIGGER UACC YES; Urine Blood Small (1+) (Negative); Urine Ketones Trace mg/dL (Negative); Urine Protein Negative (Neg-Trace)
[2024-03-20 16:28] LABS: Bacteria Urine 1+ (None Seen); Hyaline Casts Urine 0-2 /LPF (0-2); RBC Urine 0-2 /HPF (0-2); WBC Urine 0-5 /HPF (0-5)
== END 2024-03-20 14:27 | disposition home or self-care (01) ==
LOC: HO.HHCL 14:26
PROVIDERS: Visit Provider Registered Nurse
DX: R80.9 Proteinuria, unspecified (principal)
CPT/HCPCS: 81001

== ENCOUNTER 2024-03-28 12:33 | Outpatient (REF) | payer MEDICAID, SELFPAY ==
[2024-03-30 23:48] LABS: TS Negative Control Passed; TS Panel A 0; TS Panel B 0; TS Positive Control Passed; TSpotTB Negative (Negative)
== END 2024-03-28 12:34 | disposition home or self-care (01) ==
LOC: HO.HHCL 12:33
PROVIDERS: Visit Provider Registered Nurse
DX: Z11.1 Encounter for screening for respiratory tuberculosis (principal)
CPT/HCPCS: 36415; 86481

== ENCOUNTER 2024-04-25 12:58 | Outpatient (RCR) | payer MEDICAID, SELFPAY | END 2024-06-13 12:58 | disposition home or self-care (01) | LOC: HO.PT 12:58 | PROVIDERS: PCP Registered Nurse; Visit Provider Registered Nurse | DX: M54.50 Low back pain, unspecified (principal); G89.29 Other chronic pain | CPT/HCPCS: 97110; 97161; 97535 ==

== ENCOUNTER 2024-09-01 12:04 | Outpatient (REF) | payer MEDICAID, SELFPAY ==
[2024-09-01 13:11] LABS: MANUAL DIFF FLAG NO
[2024-09-01 13:23] LABS: Basophils Percent Auto 0.5 % (0-2); Eosinophils Absolute Auto 0.1 X10*3/uL (0.0-0.4); Eosinophils Percent Auto 1.5 % (0-4); Hematocrit 38.7 % (37.0-47.0); Imm Gran Abs Auto 0.02 X10*3/uL (0.00-0.03); Imm Gran Pct Auto 0.3 % (0.0-0.4); Lymphocytes Absolute Auto 1.9 X10*3/uL (1.2-4.9); Lymphocytes Percent Auto 28.4 % (20-40); Mean Corpuscular HGB Conc 33.6 g/dl (31.0-35.0); Mean Corpuscular Hemoglobin 30.8 pg (27.0-33.0); Mean Corpuscular Volume 91.7 fL (80.0-98.0); Mean Platelet Volume 9.9 fL (9.4-12.3); Monocytes Absolute Auto 0.4 X10*3/uL (0.1-1.2); Monocytes Percent Auto 6.3 % (2-11); Neutrophils Absolute Auto 4.2 x10*3/uL (2.0-8.3); Platelet Count 271 X10*3/uL (160-400); Red Blood Count 4.22 X10*6/uL (4.20-5.50); Red Cell Distribution Width 13.1 % (11.0-16.0); White Blood Count 6.7 X10*3/uL (4.8-10.8)
[2024-09-01 14:08] LABS: Alanine Aminotransferase 14 U/L (0-31); Albumin Level 4.3 g/dL (3.5-5.0); Alkaline Phosphatase 43 U/L (39-117); Anion Gap 11 (12-20); Aspartate Amino Transferase 21 U/L (5-31); Bilirubin Total 0.9 mg/dL (0.0-1.0); Blood Urea Nitrogen 13 mg/dL (9-16); Calcium 8.9 mg/dL (8.4-10.2); Carbon Dioxide 24 mmol/L (22-29); Chloride 109 mmol/L (96-108); Estimated Glomerular Filt Rate > 60; Glucose Random 73 mg/dL (60-115); Potassium 4.2 mmol/L (3.3-5.1); Sodium 140 mmol/L (135-145); Total Protein 6.9 g/dL (6.5-8.0)
[2024-09-01 14:10] LABS: Ferritin 41 ng/mL (10-122); TSH reflex Free T4 0.61 uIU/mL (0.32-4.0)
--- OUTSIDE RECORDS SUMMARY | 2024-09-01 14:24 | XMS_ITS | Encounter Summary ---
Author Organization [employer] Address [address] [place] [address] Care Team Providers Care Passenger Service Supervisor Name Role Phone Johanna Lucero HYPERTRICHOLOGIST Primary Care Provider [phone] Encounter Details Date Type Department Care Team ([facility] st Contact Info) Description 08/28/2024 Telephone [facility] ADULT DENTAL [address] [place] [address] Ricardo Chiu DDS [address] [place] [address] Social History Tobacco Use Types Packs/Day Years Used Date Smoking Tobacco: Never Passive Smoke Exposure: Never Smokeless Tobacco: Never Depression Answer Date Recorded Patient Health Questionnaire-9 Score 0 03/03/2024 Patient Health Questionnaire-9 Score 0 03/03/2024 Last PHQ-9: Questionnaire Data Not on file 1 Housing Stability Answer Date Recorded What is your housing situation today? I have isreal munoz 03/03/[address] you li ve. Do you have problems with any of the following? None of the above 03/03/2024 Food Insecurity Answer Date Recorded Within the past 12 months, y ou worried that your food would run out before you got money to buy more: Never True 03/03/2024 Within the past 12 months,th e food you bought just didn't last and you didn't have enough money to get more: Never True Transportation Answer Date Recorded In the past 12 months, has l ack of transportation kept you from medical appts, meetings, work or from getting things needed for daily living? No 03/03/2024 Utilities Answer Date Recorded In the past 12 months, has t he electric, gas, oil or water company threatened to shut off services in your home? No 03/03/2024 Depression Answer Date Recorded Patient Health Questionnaire-2 Score 0 03/03/2024 Internet Access Answer Date Recorded Internet Access Q1 Yes 03/03/2024 Internet Access Q2 Not on file 03/03/2024 Comments Unknown Sex and Gender Information Value Date Recorded Sex Assigned at Female 03/06/2022 10:16 AM EDT Legal Sex Female 10:16 AM EDT Gender Identity Female 03/06/2022 10:16 AM EDT Sexual Orientation Straight 03/06/2022 10 :16 AM EDT documented as of this encounter Miscellaneous Notes * Telephone Encounter - Yimi Santos - 08/28/2024 3:56 PM EDT Called to sched recall, patient goes elsewhere for dental services. documented in this encounter Plan of Treatment Upcoming Encounters Date Type Department Care Team (Late st Contact Info) Description 10/13/2024 1:30 PM EDT Immunization [facility] MEDICINE [address] [place] [address] documented as of this encounter Visit Diagnoses Not on filedocumented in this encounter Additional Health Concerns Assessment Noted Time PHQ-9 Depression Total Score: 0 03/03/20 24 2:22 PM EDT documented as of this encounter Care Teams Passenger Service Supervisor Relationship Specialty Start Date End Date Johanna Lucero FNP [address] [place] [address] PCP - General Family Medicine 12/28/21 documented as of this encounter
--- OUTSIDE RECORDS SUMMARY | 2024-09-01 14:24 | XMS_ITS | Encounter Summary ---
Author Organization [facility], Address [address] [place] [address] Phone Care Team Providers Care Solution Make Up Operator Name Role Phone Namita Art Primary Care Provider [phone] Encounter Details Date Type Department Care Team (Late st Contact Info) Description 05/09/2021 Documentation Only [facility], [address] [place] [address] Norberto Albert MD [address] [place] [address] Social History Tobacco Use Types Packs/Day Years Used Date Smoking Tobacco: Never Assessed Comments Unknown Sex and Gender Information Value Date Recorded Sex Assigned at Not on file Legal Sex Female 10:58 AM EST Gender Identity Not on file Sexual Orientation Not on file documented as of this encounter Plan of Treatment Not on file documented as of this encounter Visit Diagnoses Not on filedocumented in this encounter Care Teams Solution Make Up Operator Relationship Specialty Start Date End Date Namita Art PCP - General Family Medicine 06/13/21 documented as of this encounter
--- OUTSIDE RECORDS SUMMARY | 2024-09-01 14:24 | XMS_ITS | Clinical Summary ---
Author Organization [facility] Address [address] [place] [address] Care Team Providers Care Labor Economist Name Role Phone Unavailable Primary Care Provider Unavailabl e Social History Tobacco Use Types Packs/Day Years Used Date Smoking Tobacco: Never Smokeless Tobacco: Never Alcohol Use Standard Drinks/Week Comments No 0 (1 standard drink = 0.6 oz pur e alcohol) Comments Unknown Sex and Gender Information Value Date Recorded Sex Assigned at Not on file Legal Sex Female 5:36 AM EST Gender Identity Not on file Sexual Orientation Not on file Obstetrics History Plan of Treatment Health Maintenance Due Date Last Done Comments Gonorrhea/Chlamydia Screening 2001 HPV Vaccines (1 - 3-dose series) 2016 Meningococcal B Vaccine (1 o f 2 - Standard) 2017 DTaP,Tdap,and Td Vaccines (1 - Tdap) 2020 Hepatitis B Vaccines (1 of 3 - 19+ 3-dose series) 2020 Cervical Cancer Screening: P ap Smear 2022 COVID-19 Vaccine (1 - 2023-2 5 season) 2024 Influenza Vaccine (Season Ended) 2025 HIB Vaccines Aged Out No longer eligi ble based on patient's age to complete this topic Hepatitis A Vaccines Aged Out No long er eligible based on patient's age to complete this topic IPV Vaccines Aged Out No longer eligi ble based on patient's age to complete this topic MMR Vaccines Aged Out No longer eligi ble based on patient's age to complete this topic Meningococcal ACWY Vaccine Aged Out N o longer eligible based on patient's age to complete this topic Pneumococcal Vaccine: Pediat rics (0 to 5 Years) and At-Risk Patients (6 to 64 Years) Aged Out No longer eligible b ased on patient's age to complete this topic RSV Immunization Patients Un ap 20 months Aged Out No longer eligible b ased on patient's age to complete this topic Varicella Vaccines Aged Out No longer eligible based on patient's age to complete this topic
--- OUTSIDE RECORDS SUMMARY | 2024-09-01 14:24 | XMS_ITS | Encounter Summary ---
Author Organization [employer] Address [address] [facility] 7t [place] [address] Care Team Providers Care Carpenter Mold Name Role Phone [place] [facility] Primary Care Provider [phone] Reason for Visit * Reason Onset Date Comments Nurse Triage 08/27/2024 Encounter Details Date Type Department Care Team ([facility] st Contact Info) Description 08/27/2024 Telephone [facility] [address] [place] [address] [facility] [address] [place] [address] Nurse Triage Social History Tobacco Use Types Packs/Day Years [...] encounter Miscellaneous Notes * Telephone Encounter - Autumn Russ RN - 08/27/2024 2:00 PM EDT called pt to triage, spoke to pt. pt states has history of anemia and having some symptoms that aresimilar. pt states fatigue, and feeling cold a lot of the time. pt requesting appt and some labs junior done. given appt with PCP Sunday at 11:30 for exam. advised home care: rest, fluids, good nutrition, and call back as needed. pt understands and agrees with plan. insurance verified. Protocol Used: Weakness (Generalized) and Fatigue (Adult) Protocol-Based Disposition: See in Office or Video Visit within 2 Weeks Positive Triage Question: * Fatigue is a chronic symptom (recurrent or ongoing AND present > 4 weeks) * All higher-acuity triage questions were negative Care Advice Discussed: * Reassurance and Education - Mild Fatigue or Weakness * Fever Medicines * Fever Medicines - Extra Notes and Warnings * General Care Advice for Fever * Reasons To Call Back - Unable to stand or walk - Passes out - Breathing difficulty occurs - You become worse * Reassurance and Education - Mild Dehydration * Drink Fluids * Rest * Reasons To Call Back - You become worse * Telephone Encounter - Darya Mcfarland - 08/27/2024 1:03 PM EDT Symptom: Weakness Outcome: Schedule an urgent appointment (within 1 hour) or talk to a nurse or provider soon Reason: Started within the past 3 days The caller accepted this outcome. [phone] documented in this encounter Plan of Treatment Upcoming Encounters Date Type Department Care Team (Late st Contact Info) Description 10/13/2024 1:30 PM EDT Immunization [facility] [address] [place] [address] documented as of this encounter Visit Diagnoses Not on filedocumented in this encounter Additional Health Concerns Assessment Noted Time PHQ-9 Depression Total Score: 0 03/03/20 24 2:22 PM EDT documented as of this encounter Care Teams Carpenter Mold Relationship Specialty Start Date End Date Johanna Lucero FNP [address] [place] [address] PCP - General Family Medicine 12/28/21 documented as of this encounter
--- OUTSIDE RECORDS SUMMARY | 2024-09-01 14:24 | XMS_ITS | Clinical Summary ---
Author Organization [facility] Facility Address [address] [place] [address] Care Team Providers Care Accountant Auditor Name Role Phone Namita Art Primary Care Provider [phone] Allergies No known active allergies Medications ondansetron ODT (ZOFRAN-ODT) 4 MG dispersible tablet Take 4 mg by mouth every 8 (eight) hours if needed 05/09/2021 Active Carafate 1 GM/10ML suspension TAKE 10ml BY MOUTH FOUR TIMES DAILY 1 HOUR BEFORE MEALS AND AT BEDTIME 06/06/2021 Active 27-1 MG tablet Take 1 tablet by mouth 1 (one) time each day 03/14/2021 Active phenazopyridine (PYRIDIUM) 200 MG tablet TAKE 1 TABLET BY MOUTH THREE TIMES DAILY AFTER MEALS 04/20/2021 Active mirtazapine (REMERON) 30 MG tablet TAKE 1 TABLET BY MOUTH EVERY DAY BEFORE BEDTIME 05/10/2021 Active pantoprazole (PROTONIX) 40 MG EC tablet Take 40 mg by mouth 1 (one) time each day For 30 days 06/09/2021 Active busPIRone (BUSPAR) 10 MG tablet TAKE 1 TABLET BY MOUTH TWICE DAILY FOR ANXIETY 04/19/2021 Active B Complex Vitamins (vitamin B complex) tablet Take 1 tablet by mouth 1 (one) time each day 06/06/2021 Active metoclopramide (REGLAN) 10 MG tablet Take 10 mg by mouth in the morning and 10 mg at noon and 10 mg in the evening and 10 mg before bedtime. 06/09/2021 Active Active Problems Problem Noted Date Diagnosed Date Proteinuria 06/13/2021 Microscopic hematuria 06/13/2021 Acute nontraumatic kidney injury 05/08/2021 Social History Tobacco Use Types Packs/Day Years Used Date Smoking Tobacco: Never Assessed Comments Unknown Sex and Gender Information Value Date Recorded Sex Assigned at Not on file Legal Sex Female 10:58 AM EST Gender Identity Not on file Sexual Orientation Not on file Plan of Treatment Health Maintenance Due Date Last Done Comments Influenza Vaccine (Season Ended) 2025 Hepatitis B Vaccine Completed 2001, 2001, 2001 Pneumococcal Vaccine: Peds (0 to 5 Years) and At-Risk Patients (6 to 49 Years) Aged Out 08/20/2002, 2001, 2001, Additional history exists No longer eligible based on patient's age to complete this topic Insurance Medicaid [place] Care Teams Accountant Auditor Relationship Specialty Start Date End Date Namita Art PCP - General Family Medicine 06/13/21
--- OUTSIDE RECORDS SUMMARY | 2024-09-01 14:24 | XMS_ITS | Encounter Summary ---
Author Organization [employer] Address [address] [facility] 7t [place] [address] Care Team Providers Care Big Data Solutions Architect Name Role Phone [place] [facility] Primary Care Provider [phone] Reason for Visit * Reason Onset Date Comments Lab Orders 08/27/2024 Encounter Details Date Type Department Care Team ([facility] st Contact Info) Description 08/27/2024 Telephone [facility]INE [address] [place] [address] [facility] [address] [place] [address] Lab Orders Social History Tobacco Use Types Packs/Day Years [...] encounter Miscellaneous Notes * Telephone Encounter - Cecily Nugent RN - 08/27/2024 2:05 PM EDT Scheduled for appt. With PCP by energy systems laboratory director * Telephone Encounter - Darya Mcfarland - 08/27/2024 1:05 PM EDT Tc from pt requesting anemia blood test order. documented in this encounter Plan of Treatment Upcoming Encounters Date Type Department Care Team (Late st Contact Info) Description 10/13/2024 1:30 PM EDT Immunization [facility] [address] [place] [address] documented as of this encounter Visit Diagnoses Not on filedocumented in this encounter Additional Health Concerns Assessment Noted Time PHQ-9 Depression Total Score: 0 03/03/20 24 2:22 PM EDT documented as of this encounter Care Teams Big Data Solutions Architect Relationship Specialty Start Date End Date Johanna Lucero FNP [address] [place] [address] PCP - General Family Medicine 12/28/21 documented as of this encounter
--- OUTSIDE RECORDS SUMMARY | 2024-09-01 14:24 | XMS_ITS | Encounter Summary ---
Author Organization [employer] Address [address] [facility] [address] [place] [address] Care Team Providers Care Plate Mill Hand Name Role Phone Johanna Lucero [facility] Primary Care Provider [phone] Encounter Details Date Type Department Care Team (Latest Contact Info) Description 09/01/2024 Travel Social History Tobacco Use Types Packs/Day Years [...] AM EDT documented as of this encounter Plan of Treatment Upcoming Encounters Date Type Department Care Team (Late st Contact Info) Description 10/13/2024 1:30 PM EDT Immunization [facility] [address] [place] [address] documented as of this encounter Visit Diagnoses Not on filedocumented in this encounter Additional Health Concerns Assessment Noted Time PHQ-9 Depression Total Score: 0 03/03/20 24 2:22 PM EDT documented as of this encounter Care Teams Plate Mill Hand Relationship Specialty Start Date End Date Johanna Lucero FNP [address] [place] [address] PCP - General Family Medicine 12/28/21 documented as of this encounter
--- OUTSIDE RECORDS SUMMARY | 2024-09-01 14:24 | XMS_ITS | Encounter Summary ---
Author Organization [employer] Address [address] [facility] 7t [place] [address] Care Team Providers Care Orthotic Finish Grinding Technician Name Role Phone [place] [facility] Primary Care Provider [phone] Reason for Visit * Reason Onset Date Comments Chart prep 08/28/2024 Encounter Details Date Type Department Care Team ([facility] st Contact Info) Description 08/28/2024 Telephone [facility] [address] [place] [address] [facility] [address] [place] [address] Chart prep Social History Tobacco Use Types Packs/Day Years [...] encounter Miscellaneous Notes * Telephone Encounter - Marisol Schaefer MA - 08/28/2024 11:08 AM EDT Chart Prep Labs: not done Images: not done Referrals: appointment pending Vaccines due: yes Screenings: pap smear Overdue care gaps: Not applicable documented in this encounter Plan of Treatment Upcoming Encounters Date Type Department Care Team (Late st Contact Info) Description 10/13/2024 1:30 PM EDT Immunization [facility] MED[facility]INE [address] [place] [address] documented as of this encounter Visit Diagnoses Not on filedocumented in this encounter Additional Health Concerns Assessment Noted Time PHQ-9 Depression Total Score: 0 03/03/20 24 2:22 PM EDT documented as of this encounter Care Teams Orthotic Finish Grinding Technician Relationship Specialty Start Date End Date Johanna Lucero FNP [address] [place] [address] PCP - General Family Medicine 12/28/21 documented as of this encounter
--- OUTSIDE RECORDS SUMMARY | 2024-09-01 14:24 | XMS_ITS | Encounter Summary ---
Author Organization [facility], Address [address] [place] [address] Phone Care Team Providers Care Cinder Pit Worker Name Role Phone Namita Art Primary Care Provider [phone] Encounter Details Date Type Department Care Team (Late st Contact Info) Description 2021 Documentation Only [facility], [address] [place] [address] Norberto Albert MD [address] [facility] [place] [address] Social History Tobacco Use Types [...] on filedocumented in this encounter Care Teams Cinder Pit Worker Relationship Specialty Start Date End Date Namita Art PCP - General Family Medicine 06/13/21 documented as of this encounter
--- OUTSIDE RECORDS SUMMARY | 2024-09-01 14:24 | XMS_ITS | Clinical Summary ---
Author Organization [employer] Address [address] [place] [address] 7t [place] [address] Care Team Providers Care Medical Tech Name Role Phone Johanna Lucero [facility] Primary Care Provider [phone] Allergies No known active allergies Medications cyclobenzaprine (Flexeril) 5 MG tabletIndicatio ns:Chronic midline low back pain without sciatica Take 1 tablet (5 mg) by mouth if needed at bedtime for muscle spasms. 30 tablet 03/03/2024 Active Active Problems Problem Noted Date Diagnosed Date Dental plaque 09/13/2022 Gingival bleeding 09/13/2022 Gastroparesis 04/17/2022 Assessment & Plan (05/02/2022 11:30 AM EST): - Negative abdominopelvic CT 05/2021 - Endoscopy 01/2021, presumed negative, results not in chart - Neg iFOBT 05/2021 - Neg h.pylori on multiple occasions x 2 years - Gastric emptying study in 2019 showed abnormal retention of solid food in stomach after 4 hours Mixed anxiety and depressive disorder 04/17/2022 Overview (08/29/2022): ?? Previous trials of SSRI's with worsening of sx Assessment & Plan (08/29/2022 8:06 PM EDT): ?? Continue to work with therapist ?? DECREASE seroquel to 1/2 tablet (12.5mg) nightly ?? Contact HC if sx worsen Erosive esophagitis 03/17/2021 Overview (08/29/2022): ?? Previously followed by [facility] Dr. Proctor. Lost to follow up ?? Extensive hx of dyspepsia, n/v, abdominal pain. ?? Negative abdominopelvic CT 05/2021 ?? Endoscopy 01/2021 ?? Neg iFOBT 05/2021 ?? Neg h.pylori on multiple occasions x 2 years ?? Gastric emptying study in 2019 showed abnormal retention of solid food in stomach after 4 hours ?? No ETOH, no tobacco ?? Smokes marijuana occasionally which helps to stimulate appetite Assessment & Plan (08/29/2022 8:11 PM EDT): ?? Given improvement in chronic dyspepsia will trial decreased dose of pantoprazole and famotidine with plan to continue taper at follow up if sx remain well controlled ?? Pt to trial once daily pantoprazole 20mg and once daily famotidine 40mg Attention deficit hyperactivity disorder, combin ed type 10/04/2017 Resolved Problems Problem Noted Date Diagnosed Date Resolved Date Acute kidney injury 05/08/2021 05/02/20 22 COVID-19 05/08/2021 05/02/2022 Encounters Date Type Department Care Team Description 09/01/2024 11:30 AM EDT Office Visit [facility] MEDICINE [address] [place] [id number] Johanna Lucero FNP Other fatigue (Primary Dx) 09/01/2024 Travel 08/28/2024 Telephone [facility] ADULT DENTAL [address] [place] [address] Ricardo Chiu DDS 08/28/2024 Telephone [facility] MEDICINE [address] [place] [address] Johanna Lucreo FNP Chart prep 08/27/2024 Telephone [facility] MEDICINE [address] [place] [address] Johanna Lucero FNP Lab Orders 08/27/2024 Telephone [facility] MEDICINE [address] [place] [address] Johanna Lucero FNP Nurse Triage 07/18/2024 Population Health Risk Score [facility] ([facility]) Department [address] [place] [id number] Provider, Population Health Generic from Last 3 Months Immunizations Name Administration Dates Next Due DTaP 09/20/2005, 4,2001,10/26,2001 HPV 9-Valent 04/20/2016 HPV, Quadrivalent 07/30/2014 Hep A, ped/adol, 2 dose 04/20/2016,07/30/2014 Hep B, Adolescent or Pediatric 2001,2001,2001 Hep B, adult 05/12/2024,04/10/2024 Hib (HbOC) 08/20/2002, 2,2001,08/26 IPV 09/20/2005, 2,2001,08/26 Influenza, seasonal, injecta ble, preservative free 03/25/2024 MMR 09/20/2005,05/21/2002 Meningococcal MCV4P ACYW-135 10/04/2017,07/31/19 15 Pfizer Covid-19 Vaccine 12+ 03/25/2024 Pneumococcal Conjugate PCV 7 08/20/2002, 2001,2001,08/26 Tdap 11/18/2021,07/30/2014 Varicella 12/21/2008,05/21/2002 Family History Medical History Relation Name Comments Breast cancer Maternal Grandmother Relation Name Status Comments Maternal Grandmother Social History Tobacco Use Types Packs/Day Years [...] Orientation Straight 03/06/2022 10 :16 AM EDT Last Filed Vital Signs Vital Sign Reading Time Taken Comments Blood Pressure 114/64 09/01/2024 11:40 AM EDT Pulse 69 09/01/2024 11:40 AM EDT Temperature 36.3 ??C (97.4 ??F) 09/01/2024 11:40 AM E DT Respiratory Rate 16 09/01/2024 11:40 AM EDT Oxygen Saturation 99% 09/01/2024 11:40 AM EDT Inhaled Oxygen Concentration - - Weight 59.5 kg (131 lb 3.2 oz) 09/01/2024 11:40 AM EDT Height 162.6 cm (5' 4 ) 09/01/2024 11:40 AM EDT Body Mass Index 22.52 09/01/2024 11:40 AM EDT Plan of Treatment Upcoming Encounters Date Type Department Care Team (Late st Contact Info) Description 10/13/2024 1:30 PM EDT Immunization [facility] MED[facility]INE [address] [place] [address] Health Maintenance Due Date Last Done Comments Chlamydia and Gonorrhea Screening 2001 Family Planning (PISQ) 2016 Pap Smear 2022 Dental Oral Exam 03/17/2023 09/13/2022 Dental Prophylaxis 03/17/2023 09/13/2022 Dental X-Ray: Bitewings 09/15/2023 09/13/2022 Alcohol/Substance Use Screening 03/03/2025 03/03/2024 Depression Screening 03/03/2025 03/03/2024, 03/03/20 24 SDOH Screening 03/03/2025 03/03/2024 Tobacco Screening 03/05/2025 03/05/2024 Dental X-Ray: Full Mouth 08/26/2025 08/25/2022 DTaP/Tdap/Td Vaccines (8 - Td or Tdap) 11/19/2031 11/18/2021, 07/30/2014, 09/20/2005, Additional history exists RSV Patients and Patients Aged 60 years or older (1 - 1-dose 75+ series) 2076 HIB Vaccines Completed 08/20/2002, 12/06, 2001, Additional history exists Pneumococcal Vaccine: Pediatrics (0 to 5 Years) and At-Risk Patients (6 to 49) Years) Discontinued 08/20/2002, 2001, 2001, Additional history exists IPV Vaccines Completed 09/20/2005, 02/05, 2001, Additional history exists HPV Vaccines Completed 04/20/2016, 07/30/2014 Hepatitis A Vaccines Completed 04/20/2016, 07/31/19 15 Meningococcal Vaccine Completed 10/04/2017, 015 HIV Screening Discontinued 04/07/2021 COVID-19 Vaccine Completed 03/25/2024 Influenza Vaccine Completed 03/25/2024 Hepatitis B Vaccines Completed 05/12/2024, 04/10/2024, 2001, Additional history exists Hepatitis C Screening Discontinued RSV under 20 months Aged Out No longe r eligible based on patient's age to complete this topic Rotavirus Vaccines Aged Out No longer eligible based on patient's age to complete this topic Zoster Vaccines Discontinued Procedures Procedure Name Priority Date/Time Associated Diagnosis Comments COMPREHENSIVE METABOLIC PANEL Routine 09/01/2024 12:06 PM EDT Other fatigue FERRITIN Routine 09/01/2024 12:06 PM EDT Other fatigue CBC WITH AUTO DIFFERENTIAL Routine 09/01/2024 12:06 PM EDT Other fatigue TSH W/REFLEX TO FT4 Routine 09/01/2024 1 2:06 PM EDT Other fatigue PROPHYLAXIS - ADULT Routine 09/13/2022 3 :00 PM EDT Dental calculus Gingival bleeding BITEWINGS - 4 RADIOGRAPHIC IMAGES Routine 09/13/2022 3:00 PM EDT Dental calculus Gingival bleeding PERIODIC ORAL EVALUATION - ESTABLISHED PATIENT Routine 09/13/2022 2:45 PM EDT PANORAMIC RADIOGRAPHIC IMAGE Routine 08/25/2022 1:30 PM EDT Impacted third molar tooth Acute pericoronitis HIV 1/2 ANTIGEN/ANTIBODY, FOURTH GENERATION W/RFL Routine 04/07/2021 4:46 PM EST from Last 3 Months or Most Recently Relevant to Health Maintenance Results * TSH W/Reflex to FT4 (09/01/2024 12:06 PM EDT) TSH reflex Free T4 0.61 0.32 - 4.0 uIU/mL [facility] Blood Venous blood specimen / Unknown 09/01/2024 12:06 PM EDT 09/01/2024 1:15 PM EDT [facility] E MARKETING SPECIALIST LAB BLOOD ORDERABLES Final Re sult [facility] [address] [place] [phone] * CBC auto differential (09/01/2024 12:06 PM EDT) White Blood Count 6.7 4.8 - 10.8 X10*3/uL [facility] Red Blood Count 4.22 4.20 - 5.50 X10*6/uL [facility] Hemoglobin 13.0 12.0 - 16.0 g/dl [facility] Hematocrit 38.7 37.0 - 47.0 % [facility] Mean Corpuscular Volume 91.7 80.0 - 98.0 fL [facility] Mean Corpuscular Hemoglobin 30.8 27.0 - 33.0 pg [facility] Mean Corpuscular HGB Conc 33.6 31.0 - 35.0 g/dl [facility] Red Cell Distribution Width 13.1 11.0 - 16.0 % [facility] Platelet Count 271 160 - 400 X10*3/uL [facility] Mean Platelet Volume 9.9 9.4 - 12.3 fL [facility] Neutrophils Percent Auto 63.0 45 - 73 % [facility] Imm Gran Pct Auto 0.3 0.0 - 0.4 % [facility] Lymphocytes Percent Auto 28.4 20 - 40 % [facility] Monocytes Percent Auto 6.3 2 - 11 % [facility] Eosinophils Percent Auto 1.5 0 - 4 % [facility] Basophils Percent Auto 0.5 0 - 2 % [facility] NRBC Pct Auto 0.0 0.0 - 0.2 /100WBC [facility] Neutrophils Absolute Auto 4.2 2.0 - 8.3 x10*3/uL [facility] Imm Gran Abs Auto 0.02 0.00 - 0.03 X10*3/uL [facility] Lymphocytes Absolute Auto 1.9 1.2 - 4.9 X10*3/uL [facility] Monocytes Absolute Auto 0.4 0.1 - 1.2 X10*3/uL [facility] Eosinophils Absolute Auto 0.1 0.0 - 0.4 X10*3/uL [facility] Basophils Absolute Auto 0.0 0.0 - 0.2 X10*3/uL [facility] NRBC Abs Auto 0.000 0.0 - 0.012 X10*3/uL [facility] Blood Venous blood specimen / Unknown 09/01/2024 12:06 PM EDT 09/01/2024 1:07 PM EDT [facility] E MARKETING SPECIALIST LAB BLOOD ORDERABLES Final Re sult [facility] [address] [place] [address] [phone] * Ferritin (09/01/2024 12:06 PM EDT) Ferritin 41 10 - 122 ng/mL [facility] Blood Venous blood specimen / Unknown 09/01/2024 12:06 PM EDT 09/01/2024 1:15 PM EDT [facility] E MARKETING SPECIALIST LAB BLOOD ORDERABLES Final Re sult [facility] [address] [place] [address] [phone] * (ABNORMAL) Comprehensive Metabolic Panel (09/01/2024 12:06 PM EDT) Sodium 140 135 - 145 mmol/L [facility] Potassium 4.2 3.3 - 5.1 mmol/L [facility] Chloride 109(H) 96 - 108 mmol/L [facility] Carbon Dioxide 24 22 - 29 mmol/L [facility] Anion Gap 11(L) 12 - 20 [facility] Urea Nitrogen (BUN) 13 9 - 16 mg/dL [facility] Creatinine, Serum 0.67 0.5 - 1.4 mg/dL [facility] Estimated Glomerular Filt Rate >60 [facility] Comment:Chronic Kidney Disea se: Estimated GFR < 60 mL/min/[id number] Kidney Disease: Estimated GFR < 15 mL/min/1.73m2 Glucose 73 60 - 115 mg/dL [facility] Calcium 8.9 8.4 - 10.2 mg/dL [facility] Bilirubin, Total 0.9 0.0 - 1.0 mg/dL [facility] Aspartate Amino Transferase 21 5 - 31 U/L [facility] Alanine Aminotransferase 14 0 - 31 U/L [facility] Total Protein 6.9 6.5 - 8.0 g/dL [facility] Albumin Level 4.3 3.5 - 5.0 g/dL [facility] Alkaline Phosphatase 43 39 - 117 U/L [facility] Blood Venous blood specimen / Unknown 09/01/2024 12:06 PM EDT 09/01/2024 1:15 PM EDT [facility] E MARKETING SPECIALIST LAB BLOOD ORDERABLES Final Re sult [facility] [address] [place] [phone] * HIV 1/2 ANTIGEN/ANTIBODY,FOURTH GENERATION W/RFL (04/07/2021 4:46 PM EST) HIV-1/2 ANTIGEN AND ANTIBODIES, 4TH GENERATION W/ REFLEX NON-REACT CACHORRO NON-REACT CACHORRO [facility] Comment: HIV-1 antigen and HIV-1/HIV-2 antibodies were not detected. There is no laboratory evidence of HIV infection. ?? PLEASE NOTE: This information has been disclosed to you from records whose confidentiality may be protected by state law. ??If your state requires such protection, then the state law prohibits you from making any further disclosure of the information without the specific written consent of the person to whom it pertains, or as otherwise permitted by law. A general authorization for the release of medical or other information is NOT sufficient for this purpose. ? For additional information please refer to http://[email or web address].SkyTech/faq/TVC872 (This link is being provided for informational/ educational purposes only.) ? The performance of this assay has not been clinically validated in patients less than 2 years old. ?? 04/07/2021 4:46 PM EST Namita Art FILTER PLANT SUPERVISOR LAB BLOOD ORDERABLES Final Resu lt [facility] [address] from Last 3 Months or Most Recently Relevant to Health Maintenance [facility] Care Teams Medical Tech Relationship Specialty Start Date End Date Johanna Lucero FNP [address] [place] [phone] PCP - General Family Medicine 12/28/21
--- OUTSIDE RECORDS SUMMARY | 2024-09-01 14:24 | XMS_ITS | Encounter Summary ---
Author Organization [facility], Address [address] [place] [address] Phone Care Team Providers Care Call Center Director Name Role Phone Namita Art Primary Care Provider [phone] Encounter Details Date Type Department Care Team (Late st Contact Info) Description 05/09/2021 Documentation Only [facility], [address] [place] [address] Norberto Albert MD [address] [place] [address] Social History Tobacco Use Types [...] on filedocumented in this encounter Care Teams Call Center Director Relationship Specialty Start Date End Date Namita Art PCP - General Family Medicine 06/13/21 documented as of this encounter
--- OUTSIDE RECORDS SUMMARY | 2024-09-01 14:24 | XMS_ITS | Encounter Summary ---
Author Organization [employer] Address [address] [place] [address] [address] [place] [address] Care Team Providers Care Mental Health Practitioner Name Role Phone [facility] Primary Care Provider [phone] Reason for Visit * Reason Comments Med Refill Encounter Details Date Type Department Care Team (Late Contact Info) Description 06/12/2022 Refill [facility] [address] [place] [address] [facility] [address] [place] [address] Dyspepsia Social History Tobacco Use Types Packs/Day Years Used Date Smoking Tobacco: Never Smokeless Tobacco: Never Depression Answer Date Recorded Patient Health Questionnaire-9 Score 16 05/30/2022 Depression Answer Date Recorded Patient Health Questionnaire-2 Score 4 05/30/2022 Comments Unknown Sex and Gender Information Value Date Recorded Sex Assigned at Female 03/06/2022 10:16 AM EDT Legal Sex Female 10:16 AM EDT Gender Identity Female 03/06/2022 10:16 AM EDT Sexual Orientation Straight 03/06/2022 10 :16 AM EDT documented as of this encounter Plan of Treatment Upcoming Encounters Date Type Department Care Team (Late Contact Info) Description 10/13/2024 1:30 PM EDT Immunization [facility] [address] [place] [address] [phone] documented as of this encounter Visit Diagnoses Diagnosis Dyspepsia Dyspepsia and other specified disorders of function of stomach documented in this encounter Additional Health Concerns Assessment Noted Time PHQ-9 Depression Total Score: 16 023 4:17 PM EST documented as of this encounter Care Teams Mental Health Practitioner Relationship Specialty Start Date End Date [facility] Johanna, [facility] [address] [place] [address] PCP - General Family Medicine 12/28/21 documented as of this encounter
--- OUTSIDE RECORDS SUMMARY | 2024-09-01 14:24 | XMS_ITS | Encounter Summary ---
Author Organization [employer] Address [address] [facility] [address] [place] [address] Care Team Providers Care Vending Machine Host/Hostess Name Role Phone [place] [facility] Primary Care Provider [phone] Reason for Visit * Reason Comments Anemia Encounter Details Date Type Department Care Team ([facility] Contact Info) Description 09/01/2024 11:30 AM EDT Office Visit [facility] [address] [place] [address] [facility] [address] [place] [address] Other fatigue (Primary Dx) Social History Tobacco Use Types Packs/Day Years [...] AM EDT documented as of this encounter Last Filed Vital Signs Vital Sign Reading [...] Mass Index 22.52 09/01/2024 11:40 AM EDT documented in this encounter Plan of Treatment Upcoming Encounters Date Type Department Care Team (Late st Contact Info) Description 10/13/2024 1:30 PM EDT Immunization [facility] [address] [place] [phone] documented as of this encounter Procedures Procedure Name Priority Date/Time Associated Diagnosis Comments TSH W/REFLEX TO FT4 Routine 09/01/2024 1 2:06 PM EDT Other fatigue CBC WITH AUTO DIFFERENTIAL Routine 09/01/2024 12:06 PM EDT Other fatigue FERRITIN Routine 09/01/2024 12:06 PM EDT Other fatigue COMPREHENSIVE METABOLIC PANEL Routine 09/01/2024 12:06 PM EDT Other fatigue documented in this encounter Results * (ABNORMAL) Comprehensive Metabolic Panel (09/01/2024 12:06 PM EDT) Sodium 140 135 - 145 mmol/L [facility] Potassium 4.2 3.3 - 5.1 mmol/L [facility] Chloride 109(H) 96 - 108 mmol/L [facility] Carbon Dioxide 24 22 - 29 mmol/L [facility] Anion Gap 11(L) 12 - 20 [facility] Urea Nitrogen (BUN) 13 9 - 16 mg/dL [facility] Creatinine, Serum 0.67 0.5 - 1.4 mg/dL [facility] Estimated Glomerular Filt Rate >60 [facility] Comment:Chronic Kidney Disea se: Estimated GFR < 60 mL/min/[id number] Kidney Disease: Estimated GFR < 15 mL/min/1.73m2 Glucose 73 60 - 115 mg/dL [facility] Calcium 8.9 8.4 - 10.2 mg/dL [facility] Bilirubin, Total 0.9 0.0 - 1.0 mg/dL [facility] Aspartate Amino Transferase 21 5 - 31 U/L [facility] Alanine Aminotransferase 14 0 - 31 U/L [facility] Total Protein 6.9 6.5 - 8.0 g/dL [facility] Albumin Level 4.3 3.5 - 5.0 g/dL [facility] Alkaline Phosphatase 43 39 - 117 U/L [facility] Blood Venous blood specimen / Unknown 09/01/2024 12:06 PM EDT 09/01/2024 1:15 PM EDT [facility] [employer] LAB BLOOD ORDERABLES Final Re sult [facility] [address] [place] [phone] * Ferritin (09/01/2024 12:06 PM EDT) Ferritin 41 10 - 122 ng/mL [facility] Blood Venous blood specimen / Unknown 09/01/2024 12:06 PM EDT 09/01/2024 1:15 PM EDT [facility] [employer] LAB BLOOD ORDERABLES Final Re sult [facility] [address] [place] [phone] * CBC auto differential (09/01/2024 12:06 PM EDT) White Blood Count 6.7 4.8 - 10.8 X10*3/uL [facility] Red Blood Count 4.22 4.20 - 5.50 X10*6/uL [facility] Hemoglobin 13.0 12.0 - 16.0 g/dl [facility] Hematocrit 38.7 37.0 - 47.0 % [facility] Mean Corpuscular Volume 91.7 80.0 - 98.0 fL [facility] Mean Corpuscular Hemoglobin 30.8 27.0 - 33.0 pg [facility] Mean Corpuscular HGB Conc 33.6 31.0 - 35.0 g/dl [facility] Red Cell Distribution Width 13.1 11.0 - 16.0 % [facility] Platelet Count 271 160 - 400 X10*3/uL [facility] Mean Platelet Volume 9.9 9.4 - 12.3 fL [facility] Neutrophils Percent Auto 63.0 45 - 73 % [facility] Imm Gran Pct Auto 0.3 0.0 - 0.4 % [facility] Lymphocytes Percent Auto 28.4 20 - 40 % [facility] Monocytes Percent Auto 6.3 2 - 11 % [facility] Eosinophils Percent Auto 1.5 0 - 4 % [facility] Basophils Percent Auto 0.5 0 - 2 % [facility] NRBC Pct Auto 0.0 0.0 - 0.2 /100WBC [facility] Neutrophils Absolute Auto 4.2 2.0 - 8.3 x10*3/uL [facility] Imm Gran Abs Auto 0.02 0.00 - 0.03 X10*3/uL [facility] Lymphocytes Absolute Auto 1.9 1.2 - 4.9 X10*3/uL [facility] Monocytes Absolute Auto 0.4 0.1 - 1.2 X10*3/uL [facility] Eosinophils Absolute Auto 0.1 0.0 - 0.4 X10*3/uL [facility] Basophils Absolute Auto 0.0 0.0 - 0.2 X10*3/uL [facility] NRBC Abs Auto 0.000 0.0 - 0.012 X10*3/uL [facility] Blood Venous blood specimen / Unknown 09/01/2024 12:06 PM EDT 09/01/2024 1:07 PM EDT [facility] [employer] LAB BLOOD ORDERABLES Final Re sult Performing Organization Address [facility] Co de Phone Number [facility] [address] [place] [phone] * TSH W/Reflex to FT4 (09/01/2024 12:06 PM EDT) TSH reflex Free T4 0.61 0.32 - 4.0 uIU/mL [facility] Blood Venous blood specimen / Unknown 09/01/2024 12:06 PM EDT 09/01/2024 1:15 PM EDT [facility] [employer] LAB BLOOD ORDERABLES Final Re sult Performing Organization Address City/[facility] Co de Phone Number [facility] [address] [place] [address] [phone] documented in this encounter Visit Diagnoses Diagnosis Other fatigue- Primary documented in this encounter Additional Health Concerns Assessment Noted Time PHQ-9 Depression Total Score: 0 03/03/20 24 2:22 PM EDT documented as of this encounter Care Teams Vending Machine Host/Hostess Relationship Specialty Start Date End Date [facility] [address] [place] [address] PCP - General Family Medicine 12/28/21 documented as of this encounter
== END 2024-09-01 12:05 | disposition home or self-care (01) ==
LOC: HO.HHCL 12:04
PROVIDERS: Visit Provider Registered Nurse
DX: R53.83 Other fatigue (principal)
CPT/HCPCS: 36415; 80053; 82728; 84443; 85025